=== PATIENT | female | born 1945 | race Caucasian/White ===

== ENCOUNTER 2019-02-07 19:56 | Emergency (ER) | payer MEDICARE, SELFPAY ==
[2019-02-07 20:03] VITALS: BP 210/87; BP 213/92; PULSE 89; RESP 18; TEMP 36.4; O2SAT 99; BMI 24.3
--- NOTE | 2019-02-07 20:11 | ED.NEUROSD ---
HPI - Neuro Symptoms/Deficit General Chief Complaint: Hypertension Stated Complaint: left arm and face numbness/tingling Time Seen by Provider: 02/07/19 20:00 Source: patient and family Mode of arrival: ambulatory Limitations: no limitations History of Present Illness HPI Narrative: 73-year-old female nonsmoker with history of hypertension and vaginal prolapse presents to the emergency department with her in the chief complaint of left-sided facial numbness and tingling as well as left arm numbness and tingling that started essentially at rest a few hours prior to arrival. She denies other focal neurologic findings such as blurred vision, trouble with speech, extremity weakness or trouble ambulating. She denies any head injuries or headache. She has had no fever or chills. Onset (ago): hour(s) Timing confirmed by: spouse Location: left face and left arm History of same: No Severity: mild Quality: tingling Relieving factors: none Exacerbating factors: none Context: gradual onset On Anticoagulants: No Associated symptoms: denies other symptoms Treatments Prior to Arrival: none Related Data Home Medications Medication Instructions Recorded Confirmed MULTIVITAMIN (Multivitamin 1 tab PO Q DAY #0 08/20/10 -) [FLAX SEED OIL] 1 tab PO Q DAY #0 08/20/10 aspirin 325 mg PO QDAYP #0 02/01/13 Previous Rx's Medication Instructions Recorded ondansetron [Zofran ODT] 4 mg SUBLINGUAL Q6HP PRN #4 odt 02/08/17 lisinopril 20 mg PO DAILY #14 tab 02/07/19 Allergies Allergy/AdvReac Type Severity Reaction Status Date / Time ibuprofen [IBUPROFEN] Allergy Intermediate NOSE GETS Verified 02/07/19 20:16 STUFFY- CONGESTION shellfish derived Allergy Unknown PT GETS Verified 02/07/19 20:16 [SHELLFISH DERIVED] ITCHY Review of Systems Constitutional Denies chills, Denies fever(s), Denies lethargy and Denies weakness Eyes Denies change in vision, Denies eye discharge, Denies irritation and Denies loss of vision ENT Ears, Nose, Mouth, and Throat: Denies change in voice, Denies neck pain and Denies sore throat Cardiovascular Denies chest pain, Denies irregular heart rhythm, Denies lightheadedness, Denies palpitations, Denies dyspnea, Denies dyspnea on exertion and Denies orthopnea Respiratory Denies cough, Denies dyspnea, Denies dyspnea on exertion and Denies wheezing Gastrointestinal Gastrointestinal: Denies abdominal pain, Denies change in bowel habits, Denies diarrhea, Denies nausea and Denies vomiting Genitourinary Denies hematuria, Denies flank pain, Denies urinary incontinence and Denies urinary urgency Musculoskeletal Denies neck pain Integumentary/Breasts Denies pruritus, Denies erythema, Denies rash and Denies wounds Neurologic Denies confusion, Denies loss of vision, Reports paresthesias and Denies weakness Psychiatric Denies anxiety, Denies confusion, Denies depression, Denies homicidal ideation and Denies suicidal ideation Endocrine Denies palpitations Hematologic/Lymphatic Denies easy bruising Allergic/Immunologic Denies wheezing PFSH Social History Smoking Status: Never smoker Social History Smoking Status: Never smoker Exam Narrative Exam Narrative: GENERAL: [73] year old patient appears stated age. Well-nourished, well-developed patient, in mild distress. Anxious HEAD: Atraumatic. Normocephalic. EYES: Pupils equal round and reactive. Extraocular motions intact. No scleral icterus. No injection or drainage. ENT: Nose without bleeding, purulent drainage. Throat without erythema, tonsillar hypertrophy or exudate. Airway patent. NECK: Trachea midline. Non tender CARDIOVASCULAR: Regular rate and rhythm without murmurs, gallops, or rubs. RESPIRATORY: Clear to auscultation. Breath sounds equal bilaterally. No wheezes, rales, or rhonchi. GASTROINTESTINAL: Abdomen soft, non-tender, nondistended. EXTREMITIES: No edema or joint tenderness. BACK: Nontender without deformity or crepitance. No flank tenderness. NEURO: AOx3. SKIN: No rash or erythema of visible areas Initial Vital Signs Initial Vital Signs: Vital Signs Temperature 97.6 F 02/07/19 20:03 Pulse Rate 89 02/07/19 20:03 Respiratory Rate 18 02/07/19 20:03 Blood Pressure 213/92 H 02/07/19 20:03 Pulse Oximetry 99 02/07/19 20:03 Scores NIH Stroke Scale Level of Conciousness: Alert, keenly responsive Ask month/age: Answers both questions correctly. Open/close eyes, close hand: Performs both tasks correctly Best gaze horizontal: Normal Visual wheeler: No visual loss Facial palsy: Normal symetrical movement Left arm drift: No drift for full 10 sec Right arm drift: No drift for full 10 sec Left leg drift: No drift for full 10 sec Right leg drift: No drift for full 10 sec Limb ataxia: Absent Sensory on face/arms/legs: Normal, no sensory loss Best language: No aphasia, normal Dysarthria: Normal Extinction or inattention: No abnormality Total NIH Stroke scale score: 0 Course Orders Ordered: Discontinued Medications Sodium Chloride (Normal Saline 0.9%) 1,000 mls @ 150 mls/hr IV CONT SARAH Last Infusion: 02/07/19 22:27 Dose: 0 mls/hr Admin: 02/07/19 21:05 Dose: 150 mls/hr Lisinopril (Zestril) 20 mg PO NOW ONE Stop: 02/07/19 22:09 Last Admin: 02/07/19 22:20 Dose: 20 mg Reevaluation(s) Reevaluation #1: Patient had marked improvement but still some presence of her numbness and tingling on arrival. Initially her blood pressure was over 200 and by the time in NIH stroke scale was performed her blood pressure dropped into the 150s and 60s and her symptoms had completely resolved. Consultations Consultation #1: Discussion with on-call provider and we sure the opinion that provided patient is initiated on hypertensives, and given strong return precautions she is appropriate for discharge as this seems most likely to be a consequence of hypertension as opposed to stroke. MDM - Neuro Symptoms/Deficit Lab Data Result diagrams: 02/07/19 20:21 02/07/19 20:21 Lab Results 02/07/19 02/07/19 02/07/19 Range/Units 20:21 20:21 20:21 WBC 7.9 (4.5-11.0) X10^3/uL RBC 5.13 (4.0-5.2) X10^6/uL Hgb 14.6 (12.0-16.0) g/dL Hct 43.3 (36-46) % MCV 84.5 (80-100) fL MCH 28.5 (26-34) PG MCHC 33.8 (30-36) % RDW 13.0 (11.6-14.8) % Plt Count 274 (150-400) X10^3/uL Neut % (Auto) 55.1 (50-75) % Lymph % (Auto) 30.5 (25-40) % [place] % (Auto) 9.8 (3-14) % Eos % (Auto) 3.8 (2-4) % Baso % (Auto) 0.8 (0-2) % Neut # (Auto) 4300 (4454-5487) /uL Lymph # (Auto) 2400 (7232-3209) /uL [place] # (Auto) 800 (0-900) /uL Eos # (Auto) 300 (0-450) /uL Baso # (Auto) 100 (0-100) /uL PT 10.9 (10.1-12.7) SECONDS INR 0.9 (0.9-1.3) APTT 32 (26.4-36.2) SECONDS Sodium 131 L (137-145) mmol/L Potassium 3.9 (3.4-5.1) mmol/L Chloride 94 L (98-107) mmol/L Carbon Dioxide 27 (22-32) mmol/L BUN 14 (7-17) mg/dL Creatinine 0.80 (0.52-1.04) mg/dL Estimated GFR > 60.0 (>60) mL/min BUN/Creatinine Ratio 17.5 (6-22) Glucose 125 H (80-110) mg/dL Calcium 9.5 (8.4-10.2) mg/dL Troponin I < 0.012 (0.01-0.034) ng/mL Urine Dip Bedside Urine Glucose Negative Bedside Urine Bilirubin - Negative Bedside Urine Ketone - Negative Urine Specific [place] 1.010 Bedside Urine Occult Blood - Negative Bedside Urine pH 7.5 Bedside Urine Protein - Negative Bedside Urine Urobilinogen - Negative Bedside Urine Nitrite - Negative Bedside Urine Leukocytes - Negative Esterase Imaging Data CT scan - head: Radiologist's impression: [address] [address] [address] Scan Report Signed Patient: Roseline Ly RMR#: [id number] : 4Acct:[id number] Age/Sex: 73 / FDate of Service: 02/07/19 Loc: ED Accession Number: [id number] Procedure: CT head/brain wo con Ordering Provider: [place],Jose D.O. PROCEDURE: CT HEAD/BRAIN WO CON INDICATIONS: facial, arm numbness TECHNIQUE: Noncontrast 4.5 mm thick angled axial sections acquired from the foramen magnum to the vertex, with coronal and sagittal reformats. For radiation dose reduction, the following was used: automated exposure control, adjustment of mA and/or kV according to patient size. COMPARISON: None. FINDINGS: Image quality: Excellent. CSF spaces: Basal cisterns are patent. No extra-axial fluid collections. The ventricles are symmetric in size and shape. Brain: No intracranial bleeds or masses. There is cerebral volume loss for age, with resultant ventricular and sulcal prominence. There are periventricular and deep white matter chronic small vessel ischemic changes. There is intracranial internal carotid artery atherosclerosis. Skull and face: Calvarium and visualized facial bones appear intact, without suspicious lesions. Sinuses: Visualized sinuses and mastoids are clear. IMPRESSION: No contraindication to TPA found. Reportedly the patient is a potential candidate for TPA administration. Excellent appearance of the brain parenchyma for age. These findings were immediately called to the emergency room at 2100 in the evening and discussed personally with Dr. Olivas, the emergency room physician caring for the patient. Dictated by: Colton Gillette M.D. on 02/07/2019 at 21:01 Approved by: Colton Gillette M.D. on 02/07/2019 at 21:07 [facility] Narrative Medical decision making narrative: Multiple etiologies for patient's symptoms considered including: [Stroke versus TIA versus hypertensive episode] Patient's symptoms improved or duration of stay with above-stated therapies. Findings and discharge diagnosis discussed with patient/family followed by verbalization of understanding Return precautions discussed with patient/family whom verbalize understanding. Discharge Plan Departure Patient Disposition: Home Clinical Impression: Hypertension Qualifiers: Hypertension type: unspecified Qualified Code(s): I10 - Essential (primary) hypertension Discharge Date/Time: 02/07/19 22:32 Interventions: ED Discharge Assessment Last Done: 02/07/19 22:31 Instructions: DI for High Blood Pressure Activity Restrictions/Additional Instructions: *You have been diagnosed with [high blood pressure] *What to do: *Take medications as directed: Your prescription has been electronically transmitted to the [facility] at your request *Follow up with your primary care provider in 2-3 days, call for an appointment. Let them know you were seen in the Emergency Department and that we ask that you be seen in follow up *Return to ER if you should have any new, worsening or concerning symptoms, such as [ ] Prescriptions: New lisinopril 20 mg tablet 20 mg PO DAILY Qty: 14 RF: 0 No Action MULTIVITAMIN (Multivitamin -) 1 tab PO Q DAY Qty: 0 RF: 0 [FLAX SEED OIL] 1 tab PO Q DAY Qty: 0 RF: 0 aspirin 325 MG tablet,delayed release (DR/EC) 325 mg PO QDAYP Qty: 0 RF: 0 ondansetron [Zofran ODT] 4 MG tablet,disintegrating 4 mg Sublingual Q6HP PRNQty: 4 RF: 1 Referrals: Haleigh Mir MD [Primary Care Provider] -
--- NOTE | 2019-02-07 20:21 | DI.CT.S_ITS ---
PROCEDURE: CT HEAD/BRAIN WO CON INDICATIONS: facial, arm numbness TECHNIQUE: Noncontrast 4.5 mm thick angled axial sections acquired from the foramen magnum to the vertex, with coronal and sagittal reformats. For radiation dose reduction, the following was used: automated exposure control, adjustment of mA and/or kV according to patient size. COMPARISON: None. FINDINGS: Image quality: Excellent. CSF spaces: Basal cisterns are patent. No extra-axial fluid collections. The ventricles are symmetric in size and shape. Brain: No intracranial bleeds or masses. There is cerebral volume loss for age, with resultant ventricular and sulcal prominence. There are periventricular and deep white matter chronic small vessel ischemic changes. There is intracranial internal carotid artery atherosclerosis. Skull and face: Calvarium and visualized facial bones appear intact, without suspicious lesions. Sinuses: Visualized sinuses and mastoids are clear. IMPRESSION: No contraindication to TPA found. Reportedly the patient is a potential candidate for TPA administration. Excellent appearance of the brain parenchyma for age. These findings were immediately called to the emergency room at 2100 in the evening and discussed personally with Dr. Olivas, the emergency room physician caring for the patient. Dictated by: Colton Gillette M.D. on 02/07/2019 at 21:01 Approved by: Colton Gillette M.D. on 02/07/2019 at 21:07
[2019-02-07 20:30] VITALS: BP 165/72; PULSE 70; RESP 12; O2SAT 97
[2019-02-07 20:32] LABS: Add Manual Diff / Slide Review NO; Basophils Absolute Auto 100 /uL (0-100); Basophils Percent Auto 0.8 % (0-2); Eosinophils Absolute Auto 300 /uL (0-450); Eosinophils Percent Auto 3.8 % (2-4); Hematocrit 43.3 % (36-46); Hemoglobin 14.6 g/dL (12.0-16.0); Lymphocytes Absolute Auto 2400 /uL (1100-4500); Lymphocytes Percent Auto 30.5 % (25-40); Mean Corpuscular HGB Conc 33.8 % (30-36); Mean Corpuscular Hemoglobin 28.5 PG (26-34); Mean Corpuscular Volume 84.5 fL (80-100); Monocytes Absolute Auto 800 /uL (0-900); Monocytes Percent Auto 9.8 % (3-14); Neutrophils Absolute Auto 4300 /uL (1500-7000); Neutrophils Percent Auto 55.1 % (50-75); Platelet Count 274 X10^3/uL (150-400); Red Blood Cell Count 5.13 X10^6/uL (4.0-5.2); White Blood Cell Count 7.9 X10^3/uL (4.5-11.0)
[2019-02-07 20:48] LABS: INR 0.9 (0.9-1.3); Prothrombin Time 10.9 SECONDS (10.1-12.7)
[2019-02-07 20:50] LABS: PTT Partial Thromboplastin Tim 32 SECONDS (26.4-36.2)
[2019-02-07 20:52] LABS: BUN Creatinine Ratio 17.5 (6-22); Blood Urea Nitrogen 14 mg/dL (7-17); Calcium 9.5 mg/dL (8.4-10.2); Carbon Dioxide 27 mmol/L (22-32); Chloride 94 mmol/L (98-107); Estimated Glomerular Filt Rate > 60.0 mL/min (>60); Glucose 125 mg/dL (80-110); HEMOLYSIS 16 (0-50); Potassium 3.9 mmol/L (3.4-5.1); Sodium 131 mmol/L (137-145)
[2019-02-07 21:04] LABS: Troponin I < 0.012 ng/mL (0.01-0.034)
[2019-02-07] MEDS: SODIUM CHLORIDE 0.9% 1,000 ML 150 ML IV (21:05)
[2019-02-07 21:24] VITALS: BP 175/83; PULSE 67; RESP 11; O2SAT 96
[2019-02-07 22:20] VITALS: BP 173/86; PULSE 81; RESP 15; O2SAT 97
[2019-02-07] MEDS: LISINOPRIL 20 MG TABLET PO (22:20)
--- NOTE | 2019-02-08 07:03 | ED_ITS ---
HPI - Neuro Symptoms/Deficit General Chief Complaint: Hypertension Stated Complaint: left arm and face numbness/tingling Time Seen by Provider: 02/07/19 20:00 Source: patient and family Mode of arrival: ambulatory Limitations: no limitations History of Present Illness HPI Narrative: 73-year-old female nonsmoker with history of hypertension and vaginal prolapse presents to the emergency department with her in the chief complaint of left-sided facial numbness and tingling as well as left arm numbness and tingling that started essentially at rest a few hours prior to arrival. She denies other focal neurologic findings such as blurred vision, trouble with speech, extremity weakness or trouble ambulating. She denies any head injuries or headache. She has had no fever or chills. Onset (ago): hour(s) Timing confirmed by: spouse Location: left face and left arm History of same: No Severity: mild Quality: tingling Relieving factors: none Exacerbating factors: none Context: gradual onset On Anticoagulants: No Associated symptoms: denies other symptoms Treatments Prior to Arrival: none Related Data Home Medications Medication Instructions Recorded Confirmed MULTIVITAMIN (Multivitamin 1 tab PO Q DAY #0 08/20/10 -) [FLAX SEED OIL] 1 tab PO Q DAY #0 08/20/10 aspirin 325 mg PO QDAYP #0 02/01/13 Previous Rx's Medication Instructions Recorded ondansetron [Zofran ODT] 4 mg SUBLINGUAL Q6HP PRN #4 odt 02/08/17 lisinopril 20 mg PO DAILY #14 tab 02/07/19 Allergies Allergy/AdvReac Type Severity Reaction Status Date / Time ibuprofen [IBUPROFEN] Allergy Intermediate NOSE GETS Verified 02/07/19 20:16 STUFFY- CONGESTION shellfish derived Allergy Unknown PT GETS Verified 02/07/19 20:16 [SHELLFISH DERIVED] ITCHY Review of Systems Constitutional Denies chills, Denies fever(s), Denies lethargy and Denies weakness Eyes Denies change in vision, Denies eye discharge, Denies irritation and Denies loss of vision ENT Ears, Nose, Mouth, and Throat: Denies change in voice, Denies neck pain and Denies sore throat Cardiovascular Denies chest pain, Denies irregular heart rhythm, Denies lightheadedness, Denies palpitations, Denies dyspnea, Denies dyspnea on exertion and Denies orthopnea Respiratory Denies cough, Denies dyspnea, Denies dyspnea on exertion and Denies wheezing Gastrointestinal Gastrointestinal: Denies abdominal pain, Denies change in bowel habits, Denies diarrhea, Denies nausea and Denies vomiting Genitourinary Denies hematuria, Denies flank pain, Denies urinary incontinence and Denies urinary urgency Musculoskeletal Denies neck pain Integumentary/Breasts Denies pruritus, Denies erythema, Denies rash and Denies wounds Neurologic Denies confusion, Denies loss of vision, Reports paresthesias and Denies weakness Psychiatric Denies anxiety, Denies confusion, Denies depression, Denies homicidal ideation and Denies suicidal ideation Endocrine Denies palpitations Hematologic/Lymphatic Denies easy bruising Allergic/Immunologic Denies wheezing PFSH Social History Smoking Status: Never smoker Social History Smoking Status: Never smoker Exam Narrative Exam Narrative: GENERAL: [73] year old patient appears stated age. Well- nourished, well-developed patient, in mild distress. Anxious HEAD: Atraumatic. Normocephalic. EYES: Pupils equal round and reactive. Extraocular motions intact. No scleral icterus. No injection or drainage. ENT: Nose without bleeding, purulent drainage. Throat without erythema, tonsillar hypertrophy or exudate. Airway patent. NECK: Trachea midline. Non tender CARDIOVASCULAR: Regular rate and rhythm without murmurs, gallops, or rubs. RESPIRATORY: Clear to auscultation. Breath sounds equal bilaterally. No wheezes, rales, or rhonchi. GASTROINTESTINAL: Abdomen soft, non-tender, nondistended. EXTREMITIES: No edema or joint tenderness. BACK: Nontender without deformity or crepitance. No flank tenderness. NEURO: AOx3. SKIN: No rash or erythema of visible areas Initial Vital Signs Initial Vital Signs: Vital Signs Temperature 97.6 F 02/07/19 20:03 Pulse Rate 89 02/07/19 20:03 Respiratory Rate 18 02/07/19 20:03 Blood Pressure 213/92 H 02/07/19 20:03 Pulse Oximetry 99 02/07/19 20:03 Scores NIH Stroke Scale Level of Conciousness: Alert, keenly responsive Ask month/age: Answers both questions correctly. Open/close eyes, close hand: Performs both tasks correctly Best gaze horizontal: Normal Visual wheeler: No visual loss Facial palsy: Normal symetrical movement Left arm drift: No drift for full 10 sec Right arm drift: No drift for full 10 sec Left leg drift: No drift for full 10 sec Right leg drift: No drift for full 10 sec Limb ataxia: Absent Sensory on face/arms/legs: Normal, no sensory loss Best language: No aphasia, normal Dysarthria: Normal Extinction or inattention: No abnormality Total NIH Stroke scale score: 0 Course Orders Ordered: Discontinued Medications Sodium Chloride (Normal Saline 0.9%) 1,000 mls @ 150 mls/hr IV CONT SARAH Last Infusion: 02/07/19 22:27 Dose: 0 mls/hr Admin: 02/07/19 21:05 Dose: 150 mls/hr Lisinopril (Zestril) 20 mg PO NOW ONE Stop: 02/07/19 22:09 Last Admin: 02/07/19 22:20 Dose: 20 mg Reevaluation(s) Reevaluation #1: Patient had marked improvement but still some presence of her numbness and tingling on arrival. Initially her blood pressure was over 200 and by the time in NIH stroke scale was performed her blood pressure dropped into the 150s and 60s and her symptoms had completely resolved. Consultations Consultation #1: Discussion with on-call provider and we sure the opinion that provided patient is initiated on hypertensives, and given strong return precautions she is appropriate for discharge as this seems most likely to be a consequence of hypertension as opposed to stroke. MDM - Neuro Symptoms/Deficit Lab Data Result diagrams: 02/07/19 20:21 02/07/19 20:21 Lab Results 02/07/19 02/07/19 02/07/19 Range/Units 20:21 20:21 20:21 WBC 7.9 (4.5-11.0) X10^3/uL RBC 5.13 (4.0-5.2) X10^6/uL Hgb 14.6 (12.0-16.0) g/dL Hct 43.3 (36-46) % MCV 84.5 (80-100) fL MCH 28.5 (26-34) PG MCHC 33.8 (30-36) % RDW 13.0 (11.6-14.8) % Plt Count 274 (150-400) X10^3/uL Neut % (Auto) 55.1 (50-75) % Lymph % (Auto) 30.5 (25-40) % [place] % (Auto) 9.8 (3-14) % Eos % (Auto) 3.8 (2-4) % Baso % (Auto) 0.8 (0-2) % Neut # (Auto) 4300 (4472-6203) /uL Lymph # (Auto) 2400 (0464-9880) /uL [place] # (Auto) 800 (0-900) /uL Eos # (Auto) 300 (0-450) /uL Baso # (Auto) 100 (0-100) /uL PT 10.9 (10.1-12.7) SECONDS INR 0.9 (0.9-1.3) APTT 32 (26.4-36.2) SECONDS Sodium 131 L (137-145) mmol/L Potassium 3.9 (3.4-5.1) mmol/L Chloride 94 L (98-107) mmol/L Carbon Dioxide 27 (22-32) mmol/L BUN 14 (7-17) mg/dL Creatinine 0.80 (0.52-1.04) mg/dL Estimated GFR > 60.0 (>60) mL/min BUN/Creatinine Ratio 17.5 (6-22) Glucose 125 H (80-110) mg/dL Calcium 9.5 (8.4-10.2) mg/dL Troponin I < 0.012 (0.01-0.034) ng/mL Urine Dip Bedside Urine Glucose Negative Bedside Urine Bilirubin - Negative Bedside Urine Ketone - Negative Urine Specific [place] 1.010 Bedside Urine Occult Blood - Negative Bedside Urine pH 7.5 Bedside Urine Protein - Negative Bedside Urine Urobilinogen - Negative Bedside Urine Nitrite - Negative Bedside Urine Leukocytes - Negative Esterase Imaging Data CT scan - head: Radiologist's impression: [address] [address] [address] Scan Report Signed Patient: Roseline Ly RMR#: [id number] : 4Acct:[id number] Age/Sex: 73 / FDate of Service: 02/07/19 Loc: ED Accession Number: [id number] Procedure: CT head/brain wo con Ordering Provider: [place],Jose D.O. PROCEDURE: CT HEAD/BRAIN WO CON INDICATIONS: facial, arm numbness TECHNIQUE: Noncontrast 4.5 mm thick angled axial sections acquired from the foramen magnum to the vertex, with coronal and sagittal reformats. For radiation dose reduction, the following was used: automated exposure control, adjustment of mA and/or kV according to patient size. COMPARISON: None. FINDINGS: Image quality: Excellent. CSF spaces: Basal cisterns are patent. No extra-axial fluid collections. The ventricles are symmetric in size and shape. Brain: No intracranial bleeds or masses. There is cerebral volume loss for age, with resultant ventricular and sulcal prominence. There are periventricular and deep white matter chronic small vessel ischemic changes. There is intracranial internal carotid artery atherosclerosis. Skull and face: Calvarium and visualized facial bones appear intact, without suspicious lesions. Sinuses: Visualized sinuses and mastoids are clear. IMPRESSION: No contraindication to TPA found. Reportedly the patient is a potential candidate for TPA administration. Excellent appearance of the brain parenchyma for age. These findings were immediately called to the emergency room at 2100 in the evening and discussed personally with Dr. Olivas, the emergency room physician caring for the patient. Dictated by: Colton Gillette M.D. on 02/07/2019 at 21:01 Approved by: Colton Gillette M.D. on 02/07/2019 at 21:07 [facility] Narrative Medical decision making narrative: Multiple etiologies for patient's symptoms considered including: [Stroke versus TIA versus hypertensive episode] Patient's symptoms improved or duration of stay with above-stated therapies. Findings and discharge diagnosis discussed with patient/family followed by verbalization of understanding Return precautions discussed with patient/family whom verbalize understanding. Discharge Plan Departure Patient Disposition: Home Clinical Impression: Hypertension Qualifiers: Hypertension type: unspecified Qualified Code(s): I10 - Essential (primary) hypertension Discharge Date/Time: 02/07/19 22:32 Interventions: ED Discharge Assessment Last Done: 02/07/19 22:31 Instructions: DI for High Blood Pressure Activity Restrictions/Additional Instructions: *You have been diagnosed with [high blood pressure] *What to do: *Take medications as directed: Your prescription has been electronically transmitted to the [email or web address] at your request *Follow up with your primary care provider in 2-3 days, call for an ap pointment. Let them know you were seen in the Emergency Department and that we ask that you be seen in follow up *Return to ER if you should have any new, worsening or concerning symptoms, such as [ ] Prescriptions: New lisinopril 20 mg tablet 20 mg PO DAILY Qty: 14 RF: 0 No Action MULTIVITAMIN (Multivitamin -) 1 tab PO Q DAY Qty: 0 RF: 0 [FLAX SEED OIL] 1 tab PO Q DAY Qty: 0 RF: 0 aspirin 325 MG tablet,delayed release (DR/EC) 325 mg PO QDAYP Qty: 0 RF: 0 ondansetron [Zofran ODT] 4 MG tablet,disintegrating 4 mg Sublingual Q6HP PRNQty: 4 RF: 1 Referrals: Haleigh Mir MD [Primary Care Provider] -
== END 2019-02-07 22:32 | disposition home or self-care (01) ==
PROVIDERS: Emergency Provider Emergency Medicine; Family Provider Specialist; PCP Family Medicine
DX: I10 Essential (primary) hypertension (principal)
CPT/HCPCS: 36591; 70450; 80048; 81003; 84484; 85025; 85610; 85730; 93005; 96360; 99283; 99285

== ENCOUNTER → 2019-02-19 12:43 | Outpatient (CLI) | payer MEDICARE, SELFPAY ==
--- NOTE | 2019-02-19 | DI.MRI.S_ITS ---
PROCEDURE: MR STROKE Pre- and post-contrast brain MRI, non-contrast brain MR angiogram, pre- and postcontrast neck MR angiogram INDICATIONS: Transient cerebral ischemic attack, unspecified TECHNIQUE: Brain: Noncontrast axial T1 spin echo, axial T2 fast spin echo, sagittal and axial FLAIR, coronal T2 fast spin echo, axial gradient echo, axial diffusion and ADC through the brain. After the administration of contrast, axial 3D VIBE of the cranial vasculature and brain. Brain MRA: Non-contrast 3-D time of flight MR angiogram, with multiple zjjhurd-qrfdauoeg-xmeclfvylr (MIP) reformats performed. Neck MRA: Axial and sagittal TruFISP through the neck. Coronal dynamic MR angiogram during administration of contrast in the arterial and venous phases, with 3-dimenstional lgdrqtb-iqtyykkwi-uploagmchf (MIP) reformats constructed from subtraction images. COMPARISON: [facility], MR, STROKE PROTOCOL, 10/19/2015, 7:21. FINDINGS: Image quality: Excellent. BRAIN: CSF spaces: Ventricles are normal in size and shape. Basal cisterns are patent. No extra-axial fluid collections. Brain: No intracranial bleeds or mass effects. Shaikh-white matter interface is normal. Diffusion weighted images show no acute ischemic insults. Brainstem appears normal. Normal intravascular flow voids are present. No abnormal intracranial enhancement. Skull and face: Calvarial marrow signal is normal. Orbits appear normal. Sinuses: Sinuses and mastoids are clear. BRAIN MR ANGIOGRAM: Anterior circulation: Intracranial internal carotid arteries are normal in size and enhancement. The flow within the paired anterior cerebral arteries is normal and symmetric. The flow within the middle cerebral arteries is normal and symmetric. The anterior communicating artery is seen. No stenoses, occlusions, or aneurysms. Posterior circulation: The visualized portions of the vertebral arteries demonstrate normal caliber, and join to form a normal appearing basilar artery. The flow within the posterior cerebral arteries is normal and symmetric. No stenoses, occlusions, or aneurysms. NECK MR ANGIOGRAM: Carotids: Great vessels demonstrate a conventional anatomy as they arise from the aortic arch. The origins of the common carotid arteries appear patent. The calibers and courses of both common carotid arteries are normal. The bifurcation regions appear normal bilaterally. The internal carotid arteries demonstrate normal course and caliber. Posterior circulation: The origins of the vertebral arteries appear patent. More superior portions of both vertebral arteries demonstrate normal course and caliber, and join to form a normal appearing basilar artery. Miscellaneous: Subclavian arteries appear patent. Pre-contrast images through the neck show no soft tissue abnormalities. IMPRESSION: BRAIN MRI: Minimal microvascular atherosclerotic change in the deep white matter H. hemisphere, as was previously the case in September of 2015. A source of TIA is not identified. BRAIN MR ANGIOGRAM: Normal intracranial MR angiogram. NECK MR ANGIOGRAM: Normal cervical MR angiogram. Dictated by: Colton Gillette M.D. on 02/19/2019 at 15:13 Approved by: Colton Gillette M.D. on 02/19/2019 at 15:18
== END ==
PROVIDERS: PCP Family Medicine; Visit Provider Family Medicine
DX: G45.9 Transient cerebral ischemic attack, unspecified (principal)
CPT/HCPCS: 70548; 70553; A9579

== ENCOUNTER → 2019-05-06 09:27 | Outpatient (CLI) | payer MEDICARE, SELFPAY ==
--- NOTE | 2019-05-06 | DI.MG.S_ITS ---
BILATERAL DIGITAL SCREENING MAMMOGRAM 3D/2D WITH CAD: 05/06/2019 CLINICAL: Routine screening. Comparison is made to exams dated: 06/17/2017 mammogram, 06/07/2016 mammogram, and 06/05/2015 mammogram - [facility]. There are scattered fibroglandular elements in both breasts. Current study was also evaluated with a Computer Aided Detection (CAD) system. No significant masses, calcifications, or other findings are seen in either breast. There has been no significant interval change. IMPRESSION: NEGATIVE There is no mammographic evidence of malignancy. A 1 year screening mammogram is recommended. This exam was interpreted at Station ID: [id number]. NOTE: For mammograms, a report in lay terms will be sent to the patient. Approximately 15% of breast malignancies will not be visualized mammographically. In the management of a palpable breast mass, a negative mammogram must not discourage biopsy of a clinically suspicious lesion. Electronically Signed By: Jeison lopez/bipin:05/06/2019 12:53:32 letter sent: Normal Exam ACR BI-RADS Category 1: Negative 3341F
== END ==
PROVIDERS: PCP Family Medicine; Visit Provider Family Medicine
DX: Z12.31 Encounter for screening mammogram for malignant neoplasm of breast (principal)
CPT/HCPCS: 77063; 77067

== ENCOUNTER → 2020-06-21 09:12 | Outpatient (CLI) | payer MEDICARE, SELFPAY ==
--- NOTE | 2020-06-21 | DI.ECHO.S_ITS ---
[facility] +---------+ [facility] +---------+ : : [address] : : : : [id number] : : : : Phone: [phone]+ Echocardiogram Report + + :Name: ZOFIA CHAVEZ Study Date: 06/21/2020 Height: 64 in : :[facility] Weight: 148 lb : : Gender: Female BSA: 1.7 m2 : :: 1945 Age: 75 yrs BP: 146/86 mmHg: :Reason For Study: ATYPICAL CHEST PAIN, PALPITATIONS : :Ordering Physician: SUPRIYA, : :BRIAN Performed By: Mena Brown : :Referring: BRIAN EPPS : + + Interpretation Summary The left ventricle is normal in size and wall thickness. The ejection fraction is estimated to be 60-65%. No significant change in LV ejection fraction from the previous study. The right ventricle is normal in size and function. There is mild mitral regurgitation. There is mild aortic regurgitation. Compared to the prior echo study, there has been no change in the severity of aortic regurgitation. There is mild tricuspid regurgitation. The right ventricular systolic pressure is estimated to be at least 18 mmHg based on an estimated right atrial pressure of 3 mm Hg. Procedure: A two-dimensional transthoracic echocardiogram with color flow and Doppler was performed. The study quality was technically adequate. Comparison is made with the echocardiogram of 06/17/2017. The patient was in sinus rhythm with heart rates between 63-72 bpm during the exam. Left Ventricle: The left ventricle is normal in size and wall thickness. There is no thrombus. A false chord is noted (normal variant). The ejection fraction is estimated to be 60-65%. There are no focal wall motion abnormalities. MV E/A: 1.2 Med Peak E' Anant: 5.4 cm/sec E/E' med: 14.7. Right Ventricle: The right ventricle is normal in size and function. Atria: The left atrial size is normal. Both atria have remained unchanged in size since the prior echo exam. Right atrial size is normal. There is no Doppler evidence for an interatrial shunt. Mitral Valve: There is mild mitral annular calcification. There is mild mitral regurgitation. Aortic Valve: The aortic valve is trileaflet. The aortic valve opens well. There is no aortic valve stenosis. There is mild aortic regurgitation. Compared to the prior echo study, there has been no change in the severity of aortic regurgitation. Tricuspid Valve: The tricuspid valve is normal in structure and function. The right ventricular systolic pressure is estimated to be at least 18 mmHg based on an estimated right atrial pressure of 3 mm Hg. There is mild tricuspid regurgitation. Pulmonic Valve: The pulmonic valve is not well seen, but is grossly normal. There is no pulmonic valvular regurgitation. Great Vessels: The aortic root is normal size. The dimensions of the ascending aorta are normal. The IVC is of normal diameter and collapses greater than 50% with a sniff. This suggests a low right atrial pressure of 3 mm Hg. Pericardium/ Pleura There is no pericardial effusion. There is no pleural effusion. MMode/2D Measurements & Calculations LVIDd: 4.3 cm LVOT diam: 2.2 cm LVIDs: 3.2 cm Ao root diam: 2.9 cm FS: 26.1 % asc Aorta Diam: 3.1 cm EPSS: 0.58 cm Ao Arch Diam (Prox Trans): 2.4 cm IVSd: 0.82 cm LVPWd: 0.81 cm LV gatica. diameter/BSA (cm/m^2): 2.5 LV sys. diameter/BSA (cm/m^2): 1.9 LA A2 area: 17.8 cm2 RA long axis: 4.8 cm LA A4 area: 17.9 cm2 RA area: 17.5 cm2 LA length (vol): 5.0 cm RA vol: 54.4 ml LA vol: 54.1 ml RA : 31.6 ml/m2 LA vol index: 31.4 ml/m2 IVC diam: 1.2 cm RVD1 (basal): 2.8 cm TAPSE: 2.4 cm Doppler Measurements & Calculations Ao V2 max: 99.8 cm/sec LVOT Max Anant: 98.4 cm/sec Ao V2 mean: 70.8 cm/sec LV V1 max P.9 mmHg Ao max P.0 mmHg LV V1 VTI: 22.1 cm Ao mean P.2 mmHg ELVI(I,D): 3.0 cm2 Ao V2 VTI: 26.4 cm ELVI(V,D): 3.6 cm2 sev ratio: 0.84 ELVI indexed to BSA (cm^2/m^2): 1.8 AI P1/2t: 703.5 msec AI dec slope: 181.8 cm/sec2 MV E max anant: 79.8 cm/sec TR max anant: 190.3 cm/sec MV A max anant: 65.4 cm/sec TR max P.5 mmHg MV E/A: 1.2 PA V2 max: 61.4 cm/sec Med Peak E' Anant: 5.4 cm/sec PA V2 mean: 41.6 cm/sec E/E' med: 14.7 PA mean P.80 mmHg Lat Peak E' Anant: 8.6 cm/sec PA pr(Accel): 1.9 mmHg E/E' lat: 9.3 E/e' average: 12.0 MV dec time: 0.14 sec SV(LVOT): 80.5 ml Reading Physician:05:25 PM
== END ==
PROVIDERS: PCP Family Medicine; Visit Provider Family Medicine
DX: R07.89 Other chest pain (principal); R00.2 Palpitations
CPT/HCPCS: 93306

== ENCOUNTER → 2020-06-22 10:35 | Outpatient (CLI) | payer MEDICARE, SELFPAY ==
--- NOTE | 2020-07-19 09:17 | PM.CARDMON.1 ---
Director Of Graduate Medical Education Report Referral & Results Date Patient Seen: 06/22/20 Requesting provider: Haleigh Mir Indication: Palpitations Duration of monitoring (days): 14 Diary information: there are 2 patient diary entries into patient triggered events Patient triggered events were associated with sinus rhythm only Patient diary events were associated with (within 45 seconds) sinus rhythm and PACs Data: Minimum heart rate identified was 53 beats per minute at 06:17 on 07/06/2020 Maximum sinus rate was 150 beats per minute at 12:37 on 06/25/2020 Maximum overall heart rate was 266 beats per minute at 12:37 on 06/25/2020 during a 4 beat run of SVT Less than 1% of identified beats rather ventricular supraventricular ectopic in origin Patient had 1 run of nonsustained monomorphic ventricular tachycardia lasting 14 beats at a rate of 190 beats per minute 10 runs of SVT occurred with the longest lasting 6 beats at a rate of 102 beats per minute which suggest possible atrial tachycardia rather than true SVT. Episodes of atrial fibrillation also occurred with heart rate 105-188 beats per minute longest lasting 1 minutes 55 seconds Impression: patient associated events appeared to be most likely PACs Patient also with brief runs of SVT as above Patient also with a single run of nonsustained ventricular tachycardia Patient also with a very low burden of atrial fibrillation but atrial fibrillation was identified
== END ==
PROVIDERS: PCP Family Medicine; Referring Provider Family Medicine; Visit Provider Family Medicine
DX: R00.2 Palpitations (principal)
CPT/HCPCS: 0296T; 0298T

== ENCOUNTER → 2020-07-21 13:19 | Outpatient (CLI) | payer MEDICARE, SELFPAY ==
[2020-07-21] MEDS: COVID-19 VACC #1, MRNA(MOD) 100 MCG/0.5 ML VIAL IM (13:31)
== END ==
PROVIDERS: PCP Family Medicine; Visit Provider Internal Medicine
DX: Z23 Encounter for immunization (principal)
CPT/HCPCS: 0011A; 91301

== ENCOUNTER → 2020-08-18 15:36 | Outpatient (CLI) | payer MEDICARE, SELFPAY ==
[2020-08-18] MEDS: COVID-19 VACC #2, MRNA(MOD) 100 MCG/0.5 ML VIAL IM (15:42)
== END ==
PROVIDERS: PCP Family Medicine; Visit Provider Internal Medicine
DX: Z23 Encounter for immunization (principal)
CPT/HCPCS: 0012A; 91301

== ENCOUNTER → 2020-08-30 09:29 | Outpatient (CLI) | payer MEDICARE, SELFPAY ==
[2020-08-30 11:08] LABS: COVID19 -Nasal RAPID Negative (Negative)
== END ==
PROVIDERS: PCP Family Medicine; Visit Provider Physician Assistant
DX: Z20.822 Contact with and (suspected) exposure to COVID-19 (principal); Z01.812 Encounter for preprocedural laboratory examination
CPT/HCPCS: 87635; C9803

== ENCOUNTER → 2020-08-31 10:18 | Outpatient (CLI) | payer MEDICARE, SELFPAY ==
--- NOTE | 2020-08-31 19:44 | DI.NM.S_ITS ---
DATE OF SERVICE: 08/31/2020 PROCEDURE PERFORMED: Exercise treadmill stress and rest myocardial perfusion imaging study with gating to assess ejection fraction and regional wall motion. ORDERING PROVIDER: Dr. David Salinas. INDICATIONS: The patient is a 75-year-old female with recently diagnosed paroxysmal atrial fibrillation and reported nonsustained ventricular tachycardia. EXERCISE TREADMILL TESTING: The patient was able to exercise for a total of 7 minutes 28 seconds on a standard Adelso protocol suggesting excellent exercise capacity with an VANDANA of -43%. She had a normal heart rate response, achieving a maximum heart rate of 149 BPM (103% of her predicted maximum). She had a mild hypertensive blood pressure response with a resting blood pressure of 140/80, increasing to a maximum of 210/100. She had no chest pain or other anginal symptoms. Her resting ECG shows sinus rhythm with normal ST segments. With exercise, there were no significant ST-segment shifts and had occasional PACs with one brief four-beat run of SVT, but no other concerning arrhythmias. At 6 minutes 20 seconds of exercise at a heart rate of 143 BPM, 25.7 millicuries of technetium-99m Myoview was injected and the patient was imaged 15 minutes later using a gated SPECT acquisition protocol. Earlier in the day while at rest, she was injected with 10.2 millicuries of technetium-99m Myoview and imaged 30 minutes later, again using a gated SPECT acquisition protocol. FINDINGS: 1. Raw data: There is fairly good myocardial tracer uptake. Mild breast shadows are noted. Lung/heart ratio was normal at 0.27 with a normal TID ratio of 1.21. 2. Quantitated gated SPECT: Post-stress ejection fraction is estimated at 84% without any focal wall motion abnormality. Resting ejection fraction is estimated at 78% with a resting end-diastolic volume of 69 mL. 3. Myocardial perfusion imaging: Post-stress supine images shows a normal myocardial perfusion pattern without any concerning perfusion defects, supported by normal perfusion imaging in the prone position. The resting images show an identical perfusion pattern without any areas of improvement. IMPRESSION: 1. Normal myocardial perfusion study. 2. No evidence of myocardial ischemia or previous myocardial infarction. 3. Normal left ventricular systolic function without any focal wall motion abnormality. 4. Excellent exercise capacity without any angina or ECG evidence of ischemia. She had occasional PACs and a hypertensive blood pressure response to exercise. 5. Compared to the previous myocardial perfusion study of 02/12/2013, a similar perfusion pattern is seen without any significant changes. Roseline Ly - SUSHMA/lilian/nidia doc#: [id number]/job#: [id number] dd: 08/31/2020 17:01:00 dt: 08/31/2020 19:35:00 DICTATING MD/COPIES TO: Gerardo Payton MD; Juan José Salinas MD COPIES MNE: ANNE;
== END ==
PROVIDERS: PCP Family Medicine; Referring Provider Internal Medicine Cardiovascular Disease; Visit Provider Internal Medicine Cardiovascular Disease
DX: I48.0 Paroxysmal atrial fibrillation (principal); I47.2 Ventricular tachycardia
CPT/HCPCS: 78452; 93017; A9502

== ENCOUNTER → 2021-05-16 10:29 | Outpatient (CLI) | payer MEDICARE, SELFPAY ==
--- NOTE | 2021-05-16 | DI.MG.S_ITS ---
BILATERAL DIGITAL SCREENING MAMMOGRAM 3D/2D WITH CAD: 05/16/2021 CLINICAL: Routine screening. Comparison is made to exams dated: 05/06/2019 mammogram, 06/17/2017 mammogram, and 06/07/2016 mammogram - [facility]. There are scattered fibroglandular elements in both breasts. Current study was also evaluated with a Computer Aided Detection (CAD) system. No significant masses, calcifications, or other findings are seen in either breast. There has been no significant interval change. IMPRESSION: NEGATIVE There is no mammographic evidence of malignancy. A 1 year screening mammogram is recommended. This exam was interpreted at Station ID: [id number]. NOTE: For mammograms, a report in lay terms will be sent to the patient. Approximately 15% of breast malignancies will not be visualized mammographically. In the management of a palpable breast mass, a negative mammogram must not discourage biopsy of a clinically suspicious lesion. Electronically Signed By: Henry Deras M.D., jr/bipin:05/16/2021 12:40:35 letter sent: Normal Exam ACR BI-RADS Category 1: Negative 3341F
== END ==
PROVIDERS: PCP Family Medicine; Referring Provider Family Medicine; Visit Provider Family Medicine
DX: Z12.31 Encounter for screening mammogram for malignant neoplasm of breast (principal)
CPT/HCPCS: 77063; 77067

== ENCOUNTER → 2021-05-23 10:53 | Outpatient (CLI) | payer MEDICARE, SELFPAY ==
--- NOTE | 2021-05-23 | DI.RAD.S_ITS ---
PROCEDURE: XR HIP W PEL IF DONE LT 2V INDICATIONS: Pain in left hip TECHNIQUE: AP pelvis with lateral view(s) of the left hip(s). COMPARISON: None. FINDINGS: Bones: No acute fractures or dislocations. Pelvic ring appears intact. No suspicious bony lesions. Degenerative changes of the bilateral hips. This is more pronounced on the left. Degenerative changes of the lower lumbar spine. Soft tissues: The visualized bowel gas pattern is normal. No suspicious soft tissue calcifications. IMPRESSION: Left hip without acute fracture or dislocation. Degenerative changes of the bilateral hips more pronounced on the left. Dictated by: Jamshid Clement M.D. on 05/23/2021 at 15:56 Approved by: Jamshid Clement M.D. on 05/23/2021 at 15:57
--- NOTE | 2021-05-23 | DI.RAD.S_ITS ---
PROCEDURE: XR LUMBAR SPINE 2-3V INDICATIONS: Pain in left hip TECHNIQUE: 3 views of the lumbar spine were acquired. COMPARISON: None. FINDINGS: Bones: 5 bub-qna-enxgsno vertebrae are present. There is moderate leftward curvature the lumbar spine. Loss of normal lumbar lordosis. Mild grade 1 retrolisthesis of L2 on L3. Multilevel degenerative disc and facet disease. No vertebral body compression fractures. No suspicious bony lesions. Soft tissues: Overlying bowel gas pattern is normal. No suspicious soft tissue calcifications. IMPRESSION: Multilevel degenerative disc and facet disease. No acute fracture. No osseous lesion. If symptoms and/or clinical suspicion for pathology persist, further assessment with repeat, or advanced imaging (e.g., CT, MRI, or bone scan) may be helpful for further assessment. Dictated by: Perlita Ash M.D. on 05/23/2021 at 14:45 Approved by: Perlita Ash M.D. on 05/23/2021 at 15:07
== END ==
PROVIDERS: PCP Family Medicine; Referring Provider Family Medicine; Visit Provider Family Medicine
DX: M51.36 Other intervertebral disc degeneration, lumbar region (principal); M25.552 Pain in left hip
CPT/HCPCS: 72100; 73502

== ENCOUNTER → 2022-06-04 09:45 | Outpatient (CLI) | payer MEDICARE, SELFPAY ==
[2022-06-04 10:38] LABS: Add Manual Diff / Slide Review NO; Basophils Absolute Auto 100 /uL (0-100); Basophils Percent Auto 0.9 % (0-2); Eosinophils Absolute Auto 200 /uL (0-450); Eosinophils Percent Auto 3.9 % (2-4); Hematocrit 40.8 % (36-46); Hemoglobin 13.8 g/dL (12.0-16.0); Lymphocytes Absolute Auto 1100 /uL (1100-4500); Lymphocytes Percent Auto 18.5 % (25-40); Mean Corpuscular HGB Conc 33.9 % (30-36); Mean Corpuscular Hemoglobin 28.6 PG (26-34); Mean Corpuscular Volume 84.2 fL (80-100); Monocytes Absolute Auto 600 /uL (0-900); Monocytes Percent Auto 9.5 % (3-14); Neutrophils Absolute Auto 4000 /uL (1500-7000); Neutrophils Percent Auto 67.2 % (50-75); Platelet Count 280 X10^3/uL (150-400); Red Blood Cell Count 4.84 X10^6/uL (4.0-5.2); Red Cell Distribution Width 13.2 % (11.6-14.8)
[2022-06-04 11:11] LABS: BUN Creatinine Ratio 15.8 (6-22); Blood Urea Nitrogen 12 mg/dL (7-17); Calcium 9.2 mg/dL (8.4-10.2); Carbon Dioxide 27 mmol/L (22-32); Chloride 97 mmol/L (98-107); Cholesterol 211 mg/dL (140-199); Estimated Glomerular Filt Rate > 60 mL/min (>60); Glucose 94 mg/dL (80-110); HDL Cholesterol 86 mg/dL (40-60); HEMOLYSIS < 15 (0-50); LDL Cholesterol Calculated 107 mg/dL (<100); Potassium 4.5 mmol/L (3.4-5.1); Sodium 133 mmol/L (137-145); Triglycerides 92 mg/dL (35-150)
[2022-06-04 11:38] LABS: TSH w/ Reflex to FT4 1.16 uIU/mL (0.47-4.68)
== END ==
PROVIDERS: PCP Family Medicine; Referring Provider Internal Medicine Cardiovascular Disease; Visit Provider Internal Medicine Cardiovascular Disease
DX: I48.0 Paroxysmal atrial fibrillation (principal); Z79.01 Long term (current) use of anticoagulants; Z00.00 Encounter for general adult medical examination without abnormal findings
CPT/HCPCS: 36415; 80048; 80061; 84443; 85025

== ENCOUNTER → 2022-11-27 09:50 | Outpatient (CLI) | payer MEDICARE, SELFPAY ==
--- NOTE | 2022-11-27 | DI.RAD.S_ITS ---
Bone Density Report Name: ZOFIA CHAVEZ Age: 77 Sex: Female Ethnicity: White Date of : 1945 Indication: postmenopausal; screening for osteoporosis; Referring Provider: BRIAN EPPS Study: Bone densitometry was performed. Exam Date: November 27, 2022 Accession number: [id number] Bone Density: Region BMD T-score Z-score Classification AP Spine(L1-L4) 1.192 1.3 3.9 Normal Femoral Neck (Left) 0.773 -0.7 1.6 Normal Total Hip (Left) 0.933 -0.1 1.9 Normal Femoral Neck (Right) 0.761 -0.8 1.5 Normal Total Hip (Right) 0.921 -0.2 1.8 Normal Total Hip Mean 0.927 -0.2 1.9 Normal World Health Organization criteria for BMD impression classify patients as: Normal (T-score at or above -1.0), Osteopenia (T-score between -1.0 and -2.5), or Osteoporosis (T-score at or below -2.5). 10-year Fracture Risk: FRAX not reported because: All T-scores for Spine Total, Hip Total, Femoral Neck at or above -1.0 Previous Exams: -- Region Exam Age BMD T-score BMD Change BMD Change Date g/cm2 vs Baseline vs Previous -- AP Spine (L1-L4) 11/27/2022 77 1.192 1.3 0.046 (4.0%)# 0.046 (4.0%)# 12/31/2016 71 1.147 0.9 Total Hip(Left) 11/27/2022 77 0.933 -0.1 -0.033 (-3.4%)# -0.033 (-3.4%)# 12/31/2016 71 0.966 0.2 Total Hip(Right) 11/27/2022 77 0.921 -0.2 -0.020 (-2.1%)# -0.020 (-2.1%)# 12/31/2016 71 0.941 0.0 -- *Denotes significance at 95% confidence level, LSC for AP Spine = 0.022 g/cm2, LSC for Total Hip = 0.027 g/cm2 # Denotes dissimilar scan types or analysis methods Impression: The patient has normal bone mass. No significant bone loss was observed. Discussion: BONE DENSITY IS ABOVE THE MINIMUM DESIRABLE LEVEL AT ALL SKELETAL SITES TESTED. This patient's bone mineral density is above the minimum desirable level (T-score -1.0 or better) at all sites measured. The patient should follow a healthful lifestyle (good nutrition with adequate calcium and vitamin D, and appropriate weight-bearing exercise). Follow-Up: Consider repeating this study in 5 years or sooner if there is some new clinical indication. Reported by: GLENNA ORELLANA MD on 11/27/2022 10:16:00 AM.
== END ==
PROVIDERS: PCP Family Medicine; Referring Provider Family Medicine; Visit Provider Family Medicine
DX: Z78.0 Asymptomatic menopausal state (principal); Z13.820 Encounter for screening for osteoporosis
CPT/HCPCS: 77080

== ENCOUNTER → 2023-04-10 09:04 | Outpatient (CLI) | payer MEDICARE, SELFPAY ==
--- NOTE | 2023-04-10 | DI.ECHO.S_ITS ---
[facility]---------+ [facility] +---------+ : : [address] : [address] : : : : [phone] : : : : Phone: [phone]---------+ Echocardiogram Report + + :Name: ZOFIA CHAVEZ Study Date: 04/10/2023 Height: 64 in : :[facility] ReadingLocation: Weight: 133 lb : : Gender: Female BSA: 1.6 m2 : :: 1945 Age: 77 yrs BP: 136/80 mmHg: :Reason For Study: Atrial Fibrillation : :Ordering Physician: AJ, : :KANE Performed By: Grace Rosado : :Referring: KANE SALINAS : + + Interpretation Summary 1) Normal left ventricular thickness, size, wall motion, and systolic function (EF 60-65%). 2) Normal right ventricular size and function. 3) There is mild to moderate aortic regurgitation. 4) Compared to the Echo done 06/21/2020, aortic regurgitation has increased from mild to mild-moderate on this study. Procedure: A two-dimensional transthoracic echocardiogram with color flow and Doppler was performed. The study quality was technically difficult. Comparison is made with the echocardiogram of 06/21/2020. Left Ventricle: The left ventricle is normal in size and wall thickness. The ejection fraction is estimated to be 60-65%. Left ventricular systolic function appears normal without focal wall motion abnormalities. Diastolic parameters suggest a relaxation abnormality of the left ventricle, consistent with probable normal filling pressures. Right Ventricle: The right ventricle is normal in size and function. Atria: The left atrial size is normal. Right atrial size is normal. There is no Doppler evidence for an interatrial shunt. Mitral Valve: The mitral valve leaflets appear borderline thickened, but open well. There is no mitral valve stenosis. There is mild mitral regurgitation. Aortic Valve: The aortic valve is trileaflet. The aortic valve opens well. There is no aortic valve stenosis. There is mild to moderate aortic regurgitation. Tricuspid Valve: The tricuspid valve is normal. There is no tricuspid stenosis. There is mild tricuspid regurgitation. The right ventricular systolic pressure is estimated to be at least 21 mmHg based on an estimated right atrial pressure of 3 mm Hg. Pulmonic Valve: The pulmonic valve leaflets are thin and pliable; valve motion is normal. There is no pulmonic valvular stenosis. There is trace pulmonic regurgitation. Great Vessels: The aortic root is normal size. The ascending aorta is normal in size. The pulmonary artery is normal size. The IVC is of normal diameter and collapses greater than 50% with a sniff. This suggests a low right atrial pressure of 3 mm Hg. Pericardium/ Pleura There is a trivial pericardial effusion noted. There is no pleural effusion. MMode/2D Measurements & Calculations LVIDd: 4.0 cm LVOT diam: 2.0 cm LVIDs: 2.9 cm Ao root diam: 2.8 cm FS: 27.5 % asc Aorta Diam: 2.9 cm EPSS: 0.40 cm IVSd: 0.80 cm LVPWd: 1.0 cm LV gatica. diameter/BSA (cm/m^2): 2.4 LV sys. diameter/BSA (cm/m^2): 1.8 LA A2 area: 15.2 cm2 RA long axis: 4.5 cm LA A4 area: 12.2 cm2 RA area: 11.7 cm2 LA length (vol): 5.1 cm RA vol: 26.0 ml LA vol: 31.0 ml RA : 15.8 ml/m2 LA vol index: 18.9 ml/m2 IVC diam: 1.3 cm RVD1 (basal): 3.2 cm LVLs ap4: 5.6 cm LVLd ap2: 6.6 cm TAPSE_phl: 2.9 cm LVLs ap2: 5.1 cm Doppler Measurements & Calculations Ao V2 max: 117.7 cm/sec LVOT Max Anant: 104.5 cm/sec Ao V2 mean: 80.7 cm/sec LV V1 max P.4 mmHg Ao max P.0 mmHg LV V1 VTI: 24.4 cm Ao mean P.0 mmHg ELVI(I,D): 2.6 cm2 Ao V2 VTI: 29.0 cm ELVI(V,D): 2.8 cm2 sev ratio: 0.84 ELVI indexed to BSA (cm^2/m^2): 1.6 MV E max anant: 78.5 cm/sec TR max anant: 211.0 cm/sec MV A max anant: 60.7 cm/sec TR max P.8 mmHg MV E/A: 1.3 PA V2 max: 76.0 cm/sec Med Peak E' Anant: 6.8 cm/sec PA V2 mean: 50.8 cm/sec E/E' med: 11.6 PA mean P.0 mmHg Lat Peak E' Anant: 9.8 cm/sec PA pr(Accel): 16.0 mmHg E/E' lat: 8.0 E/e' average: 9.8 MV dec time: 0.22 sec SV(LVOT): 76.5 ml AV VR_phl: 0.89 ELVI(VTI)/BSA_phl: 1.6 Reading Physician:10:26 AM
[2023-04-10 10:32] LABS: Add Manual Diff / Slide Review NO; Basophils Absolute Auto 0 /uL (0-100); Basophils Percent Auto 0.6 % (0-2); Eosinophils Absolute Auto 100 /uL (0-450); Eosinophils Percent Auto 1.6 % (2-4); Hematocrit 41.5 % (36-46); Lymphocytes Absolute Auto 1200 /uL (1100-4500); Lymphocytes Percent Auto 23.5 % (25-40); Mean Corpuscular HGB Conc 33.7 % (30-36); Mean Corpuscular Hemoglobin 28.6 PG (26-34); Monocytes Absolute Auto 500 /uL (0-900); Monocytes Percent Auto 9.9 % (3-14); Neutrophils Absolute Auto 3300 /uL (1500-7000); Neutrophils Percent Auto 64.4 % (50-75); Platelet Count 250 X10^3/uL (150-400); Red Blood Cell Count 4.88 X10^6/uL (4.0-5.2); Red Cell Distribution Width 13.5 % (11.6-14.8); White Blood Cell Count 5.2 X10^3/uL (4.5-11.0)
[2023-04-10 10:57] LABS: BUN Creatinine Ratio 22.5 (6-22); Blood Urea Nitrogen 16 mg/dL (7-17); Calcium 9.7 mg/dL (8.4-10.2); Carbon Dioxide 28 mmol/L (22-32); Chloride 96 mmol/L (98-107); Cholesterol 195 mg/dL (140-199); Estimated Glomerular Filt Rate > 60 mL/min (>60); Glucose 85 mg/dL (80-110); HDL Cholesterol 101 mg/dL (40-60); HEMOLYSIS < 15 (0-50); LDL Cholesterol Calculated 81 mg/dL (<100); Potassium 5.1 mmol/L (3.4-5.1); Sodium 130 mmol/L (137-145); Triglycerides 65 mg/dL (35-150)
== END ==
PROVIDERS: PCP Family Medicine; Referring Provider Internal Medicine Cardiovascular Disease; Visit Provider Internal Medicine Cardiovascular Disease
DX: I10 Essential (primary) hypertension (principal); I48.0 Paroxysmal atrial fibrillation; I47.29 Other ventricular tachycardia; Z79.01 Long term (current) use of anticoagulants; I35.1 Nonrheumatic aortic (valve) insufficiency
CPT/HCPCS: 36415; 80048; 80061; 85025; 93306

== ENCOUNTER → 2023-05-05 17:22 | Outpatient (CLI) | payer MEDICARE, SELFPAY ==
--- NOTE | 2023-05-05 17:24 | DI.MG.S_ITS ---
BILATERAL DIGITAL SCREENING MAMMOGRAM 3D/2D WITH CAD: 05/05/2023 CLINICAL: Routine screening. Comparison is made to exams dated: 05/16/2021 mammogram, 05/06/2019 mammogram, and 06/17/2017 mammogram - [facility]. There are scattered areas of fibroglandular density in both breasts (category b / 25%-50% glandular tissue). Current study was also evaluated with a Computer Aided Detection (CAD) system. There are mole markers on the right breast. There is a mole marker on the left breast. No significant masses, calcifications, or other findings are seen in either breast. There has been no significant interval change. IMPRESSION: NEGATIVE There is no mammographic evidence of malignancy. A 1 year screening mammogram is recommended. Based on the Tyrer Cuzick model (a risk assessment model) the patient's lifetime risk is 1.9% and her 10 year risk is 0.0%. According to the ACR, ACS, and NCCN guidelines, an annual breast MRI exam along with mammogram is recommended if the patient's lifetime risk is 20% or greater. This exam was interpreted at Station ID: [id number]. NOTE: For mammograms, a report in lay terms will be sent to the patient. Approximately 15% of breast malignancies will not be visualized mammographically. In the management of a palpable breast mass, a negative mammogram must not discourage biopsy of a clinically suspicious lesion. Electronically Signed By: Sid gleason/bipin:05/06/2023 11:06:23 letter sent: Normal Exam ACR BI-RADS Category 1: Negative 3341F
== END ==
LOC: MAMMO 17:23
PROVIDERS: PCP Family Medicine; Referring Provider Family Medicine; Visit Provider Family Medicine
DX: Z12.31 Encounter for screening mammogram for malignant neoplasm of breast (principal)
CPT/HCPCS: 77063; 77067

== ENCOUNTER → 2023-11-28 11:38 | Outpatient (CLI) | payer MEDICARE, SELFPAY ==
[2023-11-28 13:16] LABS: TSH w/ Reflex to FT4 < 0.02 uIU/mL (0.47-4.68)
[2023-11-28 13:40] LABS: Free T4, Direct Thyroxine 2.26 ng/dL (0.78-2.19)
== END ==
PROVIDERS: PCP Family Medicine; Referring Provider Family Medicine; Visit Provider Family Medicine
DX: E05.90 Thyrotoxicosis, unspecified without thyrotoxic crisis or storm (principal)
CPT/HCPCS: 36415; 84439; 84443

== ENCOUNTER → 2024-01-07 15:19 | Outpatient (CLI) | payer MEDICARE, SELFPAY ==
[2024-01-07 17:12] LABS: Free T3, Triiodothyronine Free 3.58 pg/mL (2.77-5.27); Free T4, Direct Thyroxine 2.43 ng/dL (0.78-2.19)
[2024-01-07 17:27] LABS: Thyroid Stimulating Hormone < 0.015 uIU/mL (0.47-4.68)
== END ==
PROVIDERS: PCP Family Medicine; Referring Provider Family Medicine; Visit Provider Family Medicine
DX: E05.90 Thyrotoxicosis, unspecified without thyrotoxic crisis or storm (principal)
CPT/HCPCS: 36415; 84439; 84443; 84481

== ENCOUNTER → 2024-02-11 10:02 | Outpatient (CLI) | payer MEDICARE, SELFPAY | PROVIDERS: PCP Family Medicine; Referring Provider Physician Assistant; Visit Provider Physician Assistant | DX: N89.8 Other specified noninflammatory disorders of vagina (principal); R30.0 Dysuria | CPT/HCPCS: 87086; 87210 ==

== ENCOUNTER → 2024-02-14 09:26 | Outpatient (CLI) | payer MEDICARE, SELFPAY ==
[2024-02-14 11:19] LABS: Thyroid Stimulating Hormone 3.01 uIU/mL (0.47-4.68)
== END ==
PROVIDERS: PCP Family Medicine; Referring Provider Family Medicine; Visit Provider Family Medicine
DX: E05.90 Thyrotoxicosis, unspecified without thyrotoxic crisis or storm (principal); R23.2 Flushing; E03.9 Hypothyroidism, unspecified
CPT/HCPCS: 36415; 84439; 84443

== ENCOUNTER 2024-04-04 15:14 | Emergency (ER) | payer MEDICARE, SELFPAY ==
[2024-04-04 15:28] VITALS: BP 166/78; PULSE 87; RESP 18; TEMP 36.6; O2SAT 97; BMI 21.9
[2024-04-04 15:38] VITALS: BP 169/88; PULSE 93; O2SAT 97
[2024-04-04 15:46] VITALS: BP 171/90; PULSE 85; RESP 15; O2SAT 97
--- NOTE | 2024-04-04 15:54 | ED.NEUROSD ---
HPI - Neuro Symptoms/Deficit General Chief Complaint: Neuro Symptoms/Deficit Stated Complaint: Concerned I had a stroke a few days ago Time Seen by Provider: 04/04/24 15:54 Source: patient Mode of arrival: Ambulatory History of Present Illness HPI Narrative: Patient is a 78-year-old female history of hypertension hypothyroidism migraines with aura comes into the ED from home for evaluation of headache. States that this is typical of her migraine headaches has been ongoing for the past 5 days, states that she does get migraines with auras specifically to her left eye, as well as some mild confusion. States this has been ongoing for the past 5 days, states that this is typical of her symptoms, however she states that she was talking to some family and friends and they were worried she might have had a stroke. At time of initial evaluation patient not complaining of any symptoms, no visual disturbances NIH of 0 no chest pain no shortness of breath states that she is only here to be ?checked out. On Anticoagulants: No Related Data Home Medications Medication Instructions Recorded Confirmed aspirin 325 mg tablet,delayed 325 mg PO QDAYP ##0 02/01/13 02/16/24 release montelukast 10 mg tablet 10 mg PO DAILY 06/25/23 02/16/24 cetirizine 10 mg capsule (Zyrtec) 10 mg PO DAILY PRN 01/14/24 02/16/24 flecainide 50 mg tablet 50 mg PO BID 01/14/24 02/16/24 fluticasone propionate 50 2 spray intranasal DAILY 01/14/24 02/16/24 mcg/actuation nasal spray,suspension (Flonase Allergy Relief) Previous Rx's Medication Instructions Recorded estradiol 0.01% (0.1 mg/gram) 1 appful vaginal DAILY #42.5 grams 02/11/24 vaginal cream Levothyroxine Liothyronine 62-15 65 mcg PO DAILY #30 caps 02/16/24 mcg estradiol 0.5 mg tablet 0.5 mg PO DAILY 90 days #90 tabs 02/16/24 Allergies Allergy/AdvReac Type Severity Reaction Status Date / Time shellfish derived Allergy Unknown PT GETS Verified 02/16/24 12:08 [SHELLFISH DERIVED] ITCHY Review of Systems Review of Systems Narrative: General: Denies fever, chills, weight loss HEENT: Positive headache, denies, eye drainage, eye irritation, head trauma, sore throat, voice change Cardiovascular: Denies any chest pain, palpitations, shortness of breath, tachycardia Respiratory: Denies any shortness of breath, cough, wheeze, stridor GI/: Denies any abdominal pain, nausea, vomiting, diarrhea, bright red blood per rectum, melanotic stools, urinary frequency, urinary retention, dysuria, hematuria MSK: Denies any joint pain, muscle pains, swelling Skin: Denies any rashes, lesions, discoloration Neuro: Denies any headache, lightheadedness, dizziness, fainting, weakness, left eye aura/scotoma Psych: Denies SI/HI Hematologic/Lymphatic On Anticoagulants: No Patient History Medical History (Updated 04/04/24 @ 17:45 by Casper Borges DO) Allergies (~2004) Migraine with aura Rubella (~1949) Measles (~1949) Fibroids (~1990) Hyperthyroidism SAQIB (stress urinary incontinence, female) Cystocele Hot flashes Paroxysmal atrial fibrillation (~03/2019) Hypothyroidism (~2009) Surgical History (Updated 08/03/23 @ 21:47 by Brinda Scherer) Anesthesia History of bladder surgery (~2015) History of cholecystectomy (~2010) History of appendectomy (~2010) History of hysterectomy (~1990) History of cataract removal with insertion of prosthetic lens (~2016) Family History (Updated 08/03/23 @ 21:51 by Brinda Scherer) Father Alcoholic History of heart disease Mother History of heart disease Stroke Atrial fibrillation Brother Diabetes mellitus Brother Diabetes mellitus Alzheimer's disease Brother Diabetes mellitus Hypertension Hyperlipidemia Grandfather Cancer Grandmother Stroke Social History Smoking Status: Never smoker Smoking Status: Never smoker alcohol intake frequency: a few times a month Substance Use Type: does not use Exam Narrative Exam Narrative: General: Cooperative, comfortable, well-developed, not in acute distress HEENT: Normocephalic, atraumatic, PERRLA, normal sclera, eyelids normal, Neck: Active full range of motion, atraumatic Chest: Normal to inspection, negative crepitus, no overlying erythema ecchymosis Respiratory: Normal respiratory effort, not in acute respiratory distress, clear to auscultation bilaterally negative cough, wheeze, tachypnea, rhonchi, rales Cardiology: Regular rate rhythm negative gallop, murmur, rubs GI/: Normal to inspection, soft, nonrigid, no tenderness to palpation, exam deferred MSK: Full range of active range of motion of all 4 extremities, atraumatic Skin: No rashes lesions noted Neuro: Alert awake oriented x3, moves all 4 extremities spontaneously, cranial nerves intact, able to answer all questions appropriately follows commands appropriately, NIH of 0 Psych: Cooperative, negative suicidal or homicidal ideations Initial Vital Signs Initial Vital Signs: Vital Signs Temperature 98 F 04/04/24 15:28 Pulse Rate 87 04/04/24 15:28 Respiratory Rate 18 04/04/24 15:28 Blood Pressure 166/78 H 04/04/24 15:28 Pulse Oximetry 97 04/04/24 15:28 Oxygen Delivery Method Room Air 04/04/24 15:28 Course Orders Ordered: ED Orders 04/04/24 15:47 BMP [Basic Metabolic Panel] Stat CBC Auto Diff [Complete Blood Count AUTO DIFF] Stat 04/04/24 15:59 CT angio head and neck Stat CT head/brain wo con Stat Vital Signs Vital signs: Vital Signs - 8 hr 04/04/24 15:28 04/04/24 15:38 04/04/24 15:38 Temperature 98 F Pulse Rate 87 93 H Respiratory Rate 18 Blood Pressure 166/78 H 169/88 H Pulse Oximetry 97 97 Oxygen Delivery Method Room Air 04/04/24 15:46 04/04/24 15:46 04/04/24 16:00 Temperature Pulse Rate 85 83 Respiratory Rate 15 22 Blood Pressure 171/90 H Pulse Oximetry 97 98 Oxygen Delivery Method 04/04/24 16:30 04/04/24 16:30 Temperature Pulse Rate 78 Respiratory Rate 15 Blood Pressure 187/89 H Pulse Oximetry 97 Oxygen Delivery Method MDM - Neuro Symptoms/Deficit Differential Diagnosis Differential diagnosis: Likely subarachnoid hemorrhage, cerebrovascular accident and other (Electrolyte abnormality) Lab Data 04/04/24 15:47 04/04/24 15:47 Labs: Lab Results 04/04/24 Range/Units 15:47 WBC 9.7 (4.5-11.0) X10^3/uL RBC 5.58 H (4.0-5.2) X10^6/uL Hgb 14.9 (12.0-16.0) g/dL Hct 45.3 (36-46) % MCV 81.2 (80-100) fL MCH 26.8 (26-34) PG MCHC 33.0 (30-36) % RDW 15.5 H (11.6-14.8) % Plt Count 239 (150-400) X10^3/uL Neut % (Auto) 69.5 (50-75) % Lymph % (Auto) 19.2 L (25-40) % [place] % (Auto) 9.1 (3-14) % Eos % (Auto) 1.2 L (2-4) % Baso % (Auto) 1.0 (0-2) % Neut # (Auto) 6700 (7246-8957) /uL Lymph # (Auto) 1900 (1906-6092) /uL [place] # (Auto) 900 (0-900) /uL Eos # (Auto) 100 (0-450) /uL Baso # (Auto) 100 (0-100) /uL Sodium 130 L (137-145) mmol/L Potassium 4.3 (3.4-5.1) mmol/L Chloride 96 L (98-107) mmol/L Carbon Dioxide 25 (22-32) mmol/L BUN 16 (7-17) mg/dL Creatinine 0.72 (0.52-1.04) mg/dL Estimated GFR > 60 (>60) mL/min BUN/Creatinine Ratio 22.2 H (6-22) Glucose 99 (80-110) mg/dL Calcium 10.3 H (8.4-10.2) mg/dL Imaging Data CT scan - head: Radiologist's Impression: [place] [address] CT Scan Report Signed Patient: Roseline Ly MR#: [id number] : 1945 Acct:[id number] Age/Sex: 78 / F Date of Service: 04/04/24 Loc: ED Accession Number: [id number] Procedure: CT head/brain wo con Ordering Provider: Casper Borges D.O. PROCEDURE: CT HEAD/BRAIN WO CON INDICATIONS: Headache TECHNIQUE: Noncontrast 4.5 mm thick angled axial sections acquired from the foramen magnum to the vertex, with coronal and sagittal reformats. For radiation dose reduction, the following was used: automated exposure control, adjustment of mA and/or kV according to patient size. COMPARISON: [facility], CT, CT ANGIO HEAD AND NECK, 04/04/2024, 16:04. (Additional prior imaging is not available for review from the archive at the time of this dictation.) FINDINGS: Image quality: Diagnostic. CSF spaces: Basal cisterns are patent. No extra-axial fluid collections. The ventricles are symmetric in size and shape. Brain: No intracranial bleeds or masses. There is cerebral volume loss for age, with resultant ventricular and sulcal prominence. There are periventricular and deep white matter chronic small vessel ischemic changes. There is intracranial internal carotid artery atherosclerosis. Skull and face: Calvarium and visualized facial bones appear intact, without suspicious lesions. Sinuses: Visualized sinuses and mastoids are clear. IMPRESSION: No acute intracranial hemorrhage is seen. No acute intracranial pathology. If there is strong clinical suspicion for an acute stroke, please consider a brain MRI for further evaluation, as it is more sensitive (assuming that there is no contraindication to MRI). CTA - brain/neck: Radiologist's Impression: [place] [address] CT Scan Report Signed Patient: Roseline Ly MR#: [id number] : 1945 Acct:[id number] Age/Sex: 78 / F Date of Service: 04/04/24 Loc: ED Accession Number: [id number] Procedure: CT angio head and neck Ordering Provider: Casper Borges D.O. PROCEDURE: CT ANGIO HEAD AND NECK INDICATIONS: headache with left eye aura TECHNIQUE: After the administration of intravenous contrast, 1 mm thick sections acquired from the aortic arch through the [place] of [place]. 3-dimensional bwppmhe-vlsfdgpkg-qitafluhyz (MIP) and/or volume rendering reformats were acquired of the central intracranial vasculature and neck separately. For radiation dose reduction, the following was used: automated exposure control, adjustment of mA and/or kV according to patient size. COMPARISON: [facility], CT, CT HEAD/BRAIN WO CON, 04/04/2024, 16:04. FINDINGS: Image quality: Limited by bolus timing, with venous contamination. There is streak artifact seen through the level of the shoulders. BRAIN: CSF spaces: Ventricles are normal in size and shape. Basal cisterns are patent. No extra-axial fluid collections. Brain: No significant abnormality of the brain can be seen. Skull and face: Calvarium and facial bones appear intact, without suspicious lesions. Orbits appear normal. Sinuses: Sinuses and mastoids are clear. HEAD CT ANGIOGRAPHY: Anterior circulation: Intracranial internal carotid arteries are normal in size and flow. The flow within the paired anterior cerebral arteries is normal and symmetric. The flow within the middle cerebral arteries is normal and symmetric. The anterior communicating artery is seen. No aneurysms are seen. Posterior circulation: Visualized portions of the vertebral arteries demonstrate normal caliber, and join to form a normal appearing basilar artery. Flow within the posterior cerebral arteries is normal and symmetric. No aneurysms are seen. NECK CT ANGIOGRAPHY: Carotid system: The great vessels demonstrate a conventional anatomy as they arise from the aortic arch. The origins of the common carotid arteries appear patent. The common carotid arteries demonstrate normal caliber and courses. The bifurcation regions are both widely patent. The internal carotid arteries demonstrate normal calibers and courses. Posterior circulation: The origins of the vertebral arteries both appear widely patent. The more superior extracranial portions of both vertebral arteries also demonstrate normal courses and calibers. They join to form a normal appearing basilar artery. Soft tissues: Visualized neck soft tissues demonstrate no suspicious abnormalities. Bones: No suspicious bony lesions. Visualized cervical spine appears normally aligned. Moderate cervical spine degenerative change can be seen. IMPRESSION: No significant intracranial arterial abnormality is seen. No significant abnormality is seen within the arteries of the neck. No findings of dissection are seen. Additional findings: Moderate cervical spine degenerative change Any quantitative measurements of stenosis were performed using NASCET criteria. MDM Narrative Medical decision making narrative: Patient is a 78-year-old female history hypertension hyperlipidemia presents to the ED for evaluation of migraine headache with aura, states this is similar to her previous in regards to symptoms, however she states that she was told she could have a stroke by friends and family and came to the ED for evaluation treatment. No trauma no falls not on any blood thinners at time of initial evaluation patient without any headaches or aura no visual disturbances. States that her symptoms did resolve yesterday but decided come into the ED for evaluation. NIH of 0. No focal deficits. CT scan without any signs of acute findings, informed patient to follow up with Neurology and PCP in outpatient setting, verbalized understanding of this agrees to being discharged home with outpatient follow up Discharge Plan Departure Patient Disposition: Home Clinical Impression: Migraine with aura Activity Restrictions/Additional Instructions: Please follow up Neurology and PCP Please read the discharge instructions sheet carefully and bring all papers to all doctor follow-up visits, as it may contain information that your doctor may want to see. Disease processes change and evolve, if your symptoms worsen or if you develop any new symptoms that are concerning to you please return for evaluation. Your evaluation today does not show any evidence of any life-threatening/serious illnesses requiring admission to the hospital or surgery. Please follow-up with your doctor for re-evaluation in approximately 1 day. Seek immediate medical attention for any worrisome symptoms. Prescriptions: No Action montelukast 10 mg tablet 10 mg PO DAILY flecainide 50 mg tablet 50 mg PO BID fluticasone propionate [Flonase Allergy Relief] 50 mcg/actuation spray,suspension 2 spray intranasal DAILY Rx Instructions: administer into each nostril Zyrtec 10 mg capsule 10 mg PO DAILY PRN estradiol 0.5 mg tablet 0.5 mg PO DAILY 90 Days Qty: 90 4RF Levothyroxine Liothyronine 62-15 mcg capsule 65 mcg PO DAILY Qty: 30 0RF Rx Instructions: Levothyroxine Liothyronine 62-15 mcg estradiol 0.01 % (0.1 mg/gram) cream 1 appful vaginal DAILY Qty: 42.5 0RF Rx Instructions: for 14 days aspirin 325 MG tablet,delayed release (DR/EC) 325 mg PO QDAYP Qty: 0 Referrals: Addie Lopez MD [Primary Care Provider] - Stand Alone Forms: Patient Portal/API
--- NOTE | 2024-04-04 15:59 | DI.CT.S_ITS ---
PROCEDURE: CT HEAD/BRAIN WO CON INDICATIONS: Headache TECHNIQUE: Noncontrast 4.5 mm thick angled axial sections acquired from the foramen magnum to the vertex, with coronal and sagittal reformats. For radiation dose reduction, the following was used: automated exposure control, adjustment of mA and/or kV according to patient size. COMPARISON: [facility], CT, CT ANGIO HEAD AND NECK, 04/04/2024, 16:04. (Additional prior imaging is not available for review from the archive at the time of this dictation.) FINDINGS: Image quality: Diagnostic. CSF spaces: Basal cisterns are patent. No extra-axial fluid collections. The ventricles are symmetric in size and shape. Brain: No intracranial bleeds or masses. There is cerebral volume loss for age, with resultant ventricular and sulcal prominence. There are periventricular and deep white matter chronic small vessel ischemic changes. There is intracranial internal carotid artery atherosclerosis. Skull and face: Calvarium and visualized facial bones appear intact, without suspicious lesions. Sinuses: Visualized sinuses and mastoids are clear. IMPRESSION: No acute intracranial hemorrhage is seen. No acute intracranial pathology. If there is strong clinical suspicion for an acute stroke, please consider a brain MRI for further evaluation, as it is more sensitive (assuming that there is no contraindication to MRI). Dictated by: Lloyd Portillo M.D. on 04/04/2024 at 16:30 Approved by: Lloyd Portillo M.D. on 04/04/2024 at 16:30
--- NOTE | 2024-04-04 15:59 | DI.CT.S_ITS ---
PROCEDURE: CT ANGIO HEAD AND NECK INDICATIONS: headache with left eye aura TECHNIQUE: After the administration of intravenous contrast, 1 mm thick sections acquired from the aortic arch through the [place] of [place]. 3-dimensional xjpdaep-pjiggzrsl-tpgeqsgpna (MIP) and/or volume rendering reformats were acquired of the central intracranial vasculature and neck separately. For radiation dose reduction, the following was used: automated exposure control, adjustment of mA and/or kV according to patient size. COMPARISON: [facility], CT, CT HEAD/BRAIN WO CON, 04/04/2024, 16:04. FINDINGS: Image quality: Limited by bolus timing, with venous contamination. There is streak artifact seen through the level of the shoulders. BRAIN: CSF spaces: Ventricles are normal in size and shape. Basal cisterns are patent. No extra-axial fluid collections. Brain: No significant abnormality of the brain can be seen. Skull and face: Calvarium and facial bones appear intact, without suspicious lesions. Orbits appear normal. Sinuses: Sinuses and mastoids are clear. HEAD CT ANGIOGRAPHY: Anterior circulation: Intracranial internal carotid arteries are normal in size and flow. The flow within the paired anterior cerebral arteries is normal and symmetric. The flow within the middle cerebral arteries is normal and symmetric. The anterior communicating artery is seen. No aneurysms are seen. Posterior circulation: Visualized portions of the vertebral arteries demonstrate normal caliber, and join to form a normal appearing basilar artery. Flow within the posterior cerebral arteries is normal and symmetric. No aneurysms are seen. NECK CT ANGIOGRAPHY: Carotid system: The great vessels demonstrate a conventional anatomy as they arise from the aortic arch. The origins of the common carotid arteries appear patent. The common carotid arteries demonstrate normal caliber and courses. The bifurcation regions are both widely patent. The internal carotid arteries demonstrate normal calibers and courses. Posterior circulation: The origins of the vertebral arteries both appear widely patent. The more superior extracranial portions of both vertebral arteries also demonstrate normal courses and calibers. They join to form a normal appearing basilar artery. Soft tissues: Visualized neck soft tissues demonstrate no suspicious abnormalities. Bones: No suspicious bony lesions. Visualized cervical spine appears normally aligned. Moderate cervical spine degenerative change can be seen. IMPRESSION: No significant intracranial arterial abnormality is seen. No significant abnormality is seen within the arteries of the neck. No findings of dissection are seen. Additional findings: Moderate cervical spine degenerative change Any quantitative measurements of stenosis were performed using NASCET criteria. Dictated by: Lloyd Portillo M.D. on 04/04/2024 at 16:27 Approved by: Lloyd Portillo M.D. on 04/04/2024 at 16:29
[2024-04-04 16:00] VITALS: PULSE 83; RESP 22; O2SAT 98
[2024-04-04 16:09] LABS: Add Manual Diff / Slide Review NO; Basophils Absolute Auto 100 /uL (0-100); Eosinophils Absolute Auto 100 /uL (0-450); Eosinophils Percent Auto 1.2 % (2-4); Hematocrit 45.3 % (36-46); Hemoglobin 14.9 g/dL (12.0-16.0); Lymphocytes Absolute Auto 1900 /uL (1100-4500); Lymphocytes Percent Auto 19.2 % (25-40); Mean Corpuscular Hemoglobin 26.8 PG (26-34); Mean Corpuscular Volume 81.2 fL (80-100); Monocytes Absolute Auto 900 /uL (0-900); Monocytes Percent Auto 9.1 % (3-14); Neutrophils Absolute Auto 6700 /uL (1500-7000); Neutrophils Percent Auto 69.5 % (50-75); Platelet Count 239 X10^3/uL (150-400); Red Blood Cell Count 5.58 X10^6/uL (4.0-5.2); Red Cell Distribution Width 15.5 % (11.6-14.8); White Blood Cell Count 9.7 X10^3/uL (4.5-11.0)
[2024-04-04 16:13] LABS: BUN Creatinine Ratio 22.2 (6-22); Blood Urea Nitrogen 16 mg/dL (7-17); Calcium 10.3 mg/dL (8.4-10.2); Carbon Dioxide 25 mmol/L (22-32); Chloride 96 mmol/L (98-107); Estimated Glomerular Filt Rate > 60 mL/min (>60); Glucose 99 mg/dL (80-110); HEMOLYSIS < 15 (0-50); Potassium 4.3 mmol/L (3.4-5.1); Sodium 130 mmol/L (137-145)
[2024-04-04 16:30] VITALS: BP 187/89; PULSE 78; RESP 15; O2SAT 97
[2024-04-04 18:03] VITALS: BP 171/85; PULSE 81; RESP 20; TEMP 37; O2SAT 100
== END 2024-04-04 18:04 | disposition home or self-care (01) ==
PROVIDERS: Emergency Provider Student in an Organized Health Care Education/Training Program; PCP Family Medicine
DX: G43.109 Migraine with aura, not intractable, without status migrainosus (principal); R41.0 Disorientation, unspecified
CPT/HCPCS: 70450; 70496; 70498; 80048; 85025; 99281; 99284

== ENCOUNTER → 2024-05-17 10:33 | Outpatient (CLI) | payer MEDICARE, SELFPAY ==
[2024-05-17 12:22] LABS: Hematocrit 46.3 % (36-46); Hemoglobin 15.4 g/dL (12.0-16.0); Mean Corpuscular HGB Conc 33.2 % (30-36); Mean Corpuscular Hemoglobin 27.4 PG (26-34); Mean Corpuscular Volume 82.5 fL (80-100); Platelet Count 249 X10^3/uL (150-400); Red Blood Cell Count 5.62 X10^6/uL (4.0-5.2); Red Cell Distribution Width 17.1 % (11.6-14.8); White Blood Cell Count 7.1 X10^3/uL (4.5-11.0)
[2024-05-17 12:46] LABS: BUN Creatinine Ratio 17.8 (6-22); Blood Urea Nitrogen 13 mg/dL (7-17); Carbon Dioxide 28 mmol/L (22-32); Chloride 95 mmol/L (98-107); Cholesterol 259 mg/dL (140-199); Estimated Glomerular Filt Rate > 60 mL/min (>60); Glucose 83 mg/dL (80-110); HEMOLYSIS < 15 (0-50); Potassium 5.3 mmol/L (3.4-5.1); Sodium 130 mmol/L (137-145); Triglycerides 89 mg/dL (35-150)
[2024-05-17 12:53] LABS: HDL Cholesterol 125 mg/dL (40-60); LDL Cholesterol Calculated 116 mg/dL (<100)
== END ==
LOC: LAB 10:35
PROVIDERS: PCP Family Medicine; Referring Provider Internal Medicine Cardiovascular Disease; Visit Provider Internal Medicine Cardiovascular Disease
DX: Z00.01 Encounter for general adult medical examination with abnormal findings (principal); Z79.01 Long term (current) use of anticoagulants; I48.0 Paroxysmal atrial fibrillation
CPT/HCPCS: 36415; 80048; 80061; 85027

== ENCOUNTER → 2024-06-18 09:42 | Outpatient (CLI) | payer MEDICARE, SELFPAY ==
--- NOTE | 2024-06-18 09:44 | DI.MG.S_ITS ---
BILATERAL DIGITAL DIAGNOSTIC MAMMOGRAM 3D/2D: 06/18/2024 CLINICAL: Bilateral non-focal breast pain. Comparison is made to exams dated: 05/05/2023 mammogram, 05/16/2021 mammogram, and 05/06/2019 mammogram - [facility]. There are scattered areas of fibroglandular density (category b / 25%-50% glandular tissue). No significant masses, calcifications, or other findings are seen in either breast. Of note, because the patient's symptoms are diffuse, no BB marker was placed. IMPRESSION: NEGATIVE No mammographic evidence of malignancy. A 1 year screening mammogram is recommended. Diffuse, non-focal symptoms, such as pain or fullness are typically benign. Clinical follow-up is recommended, and further management of these symptoms should be based on the results of clinical evaluation. If diffuse symptoms persist or become more focal in nature, further clinical evaluation should be considered. Findings and recommendations were conveyed to the patient during today's evaluation. Based on the Tyrer Cuzick model (a risk assessment model) the patient's lifetime risk is 1.6% and her 10 year risk is 0.0%. According to the ACR, ACS, and NCCN guidelines, an annual breast MRI exam along with mammogram is recommended if the patient's lifetime risk is 20% or greater. This exam was interpreted at Station ID: [id number]. NOTE: For mammograms, a report in lay terms will be sent to the patient. Approximately 15% of breast malignancies will not be visualized mammographically. In the management of a palpable breast mass, a negative mammogram must not discourage biopsy of a clinically suspicious lesion. Electronically Signed By: Dennise Esquivel M.D., Ph.D. eb/:06/18/2024 10:33:56 letter sent: Clinical Evaluation ACR BI-RADS Category 1: Negative
== END ==
PROVIDERS: PCP Family Medicine; Referring Provider Family Medicine; Visit Provider Family Medicine
DX: R92.8 Other abnormal and inconclusive findings on diagnostic imaging of breast (principal); N64.4 Mastodynia; Z87.898 Personal history of other specified conditions
CPT/HCPCS: 77066; G0279

== ENCOUNTER → 2024-07-09 07:58 | Outpatient (CLI) | payer MEDICARE, SELFPAY ==
--- NOTE | 2024-07-09 08:00 | DI.US.S_ITS ---
PROCEDURE: US ARTERIAL DUPLEX LE BI INDICATIONS: Quantflow- L flow: 0.64 (nml 1-1.4)R flow:0.78 (nml 1-1.4) TECHNIQUE: Color and pulse Doppler interrogation was performed of both lower extremity arterial systems, with image documentation. COMPARISON: None. FINDINGS: Right lower extremity: Common femoral artery: 105.6 cm/sec, with triphasic flow. Deep femoral artery: 78.4 cm/sec, with triphasic flow. Proximal superficial femoral artery: 90 cm/sec, with triphasic flow. Mid superficial femoral artery: 74.5 cm/sec, with triphasic flow. Distal superficial femoral artery: 71 point cm/sec, with triphasic flow. Popliteal artery: 62.4 cm/sec, with triphasic flow. Posterior tibial artery: 47.5 cm/sec, with triphasic flow. Anterior tibial artery/dorsalis pedis: 50 cm/sec, with triphasic flow. Shaikh-scale imaging description: No significant atheromatous disease. Left lower extremity: Common femoral artery: 113.2 cm/sec, with triphasic flow. Deep femoral artery: 81.5 cm/sec, with triphasic flow. Proximal superficial femoral artery: 08.5 cm/sec, with triphasic flow. Mid superficial femoral artery: 93.2 cm/sec, with triphasic flow. Distal superficial femoral artery: 65.2 cm/sec, with triphasic flow. Popliteal artery: 52.8 cm/sec, with triphasic flow. Posterior tibial artery: 46 cm/sec, with triphasic flow. Anterior tibial artery/dorsalis pedis: 49.5 cm/sec, with triphasic flow. Shaikh-scale imaging description: No significant atheromatous disease. IMPRESSION: 1-19 % stenosis of the right and left common femoral arteries. Dictated by: Jeison Patrick M.D. on 07/10/2024 at 20:42 Approved by: Jeison Patrick M.D. on 07/10/2024 at 20:45
[2024-07-09 10:54] LABS: Free T4, Direct Thyroxine 1.34 ng/dL (0.78-2.19)
[2024-07-09 11:08] LABS: Thyroid Stimulating Hormone 0.375 uIU/mL (0.47-4.68)
== END ==
PROVIDERS: Student in an Organized Health Care Education/Training Program; PCP Family Medicine; Referring Provider Family Medicine; Visit Provider Family Medicine
DX: E03.9 Hypothyroidism, unspecified (principal); I73.9 Peripheral vascular disease, unspecified
CPT/HCPCS: 36415; 84439; 84443; 93925

== ENCOUNTER → 2024-08-24 08:45 | Outpatient (CLI) | payer MEDICARE, SELFPAY ==
[2024-08-24 10:40] LABS: Free T4, Direct Thyroxine 1.01 ng/dL (0.78-2.19)
== END ==
PROVIDERS: PCP Family Medicine; Referring Provider Student in an Organized Health Care Education/Training Program; Visit Provider Student in an Organized Health Care Education/Training Program
DX: E03.9 Hypothyroidism, unspecified (principal)
CPT/HCPCS: 36415; 84439; 84443

== ENCOUNTER 2025-04-09 16:02 | Emergency (ER) | payer MEDICARE, SELFPAY ==
[2025-04-09 16:07] VITALS: BP 198/96; PULSE 88; RESP 16; TEMP 36.3; O2SAT 97; BMI 22.1
--- NOTE | 2025-04-09 17:09 | PC.NURSE ---
lac to occipital area of scalp not currently bleeding but dressed in gauze awaiting provider exam pt denies loc
--- NOTE | 2025-04-09 17:59 | ED.HEATRA ---
HPI - Head Injury General Chief complaint: Head Injury Stated complaint: MYRANDA hid her head Time Seen by Provider: 04/09/25 17:57 Source: patient Mode of arrival: Ambulatory History of Present Illness HPI Narrative: 79-year-old female history of hypertension, atrial fibrillation not on anticoagulation, hypothyroidism, migraine with aura, tripped over the netting from the plants hitting her head against the cement. She subsequently took some aspirin for the pain but the bleeding started and she came in to be evaluated. Patient denies bowel or bladder incontinence, back, abdominal, and chest pain, nausea, vomiting, blurred vision, shortness of breath, but does endorse neck pain, and headache. Other than what is stated 14 point review of system is negative. Related Data Home Medications ?Medication ?Instructions ?Recorded ?Confirmed aspirin 325 mg tablet,delayed 325 mg PO QDAYP ##0 02/01/13 06/04/24 release montelukast 10 mg tablet 10 mg PO DAILY 06/25/23 06/04/24 cetirizine 10 mg capsule (Zyrtec) 10 mg PO DAILY PRN 01/14/24 06/04/24 fluticasone propionate 50 2 spray intranasal DAILY 01/14/24 06/04/24 mcg/actuation nasal spray,suspension (Flonase Allergy Relief) nebivolol 2.5 mg tablet 2.5 mg PO DAILY 04/13/24 06/04/24 Previous Rx's ?Medication ?Instructions ?Recorded sumatriptan succinate 50 mg tablet See Rx Instructions PO .COMPLEX 04/13/24 #20 tabs estradiol 0.5 mg tablet 0.5 mg PO DAILY 90 days #90 tabs 04/30/24 estradiol 0.01% (0.1 mg/gram) 1 appful vaginal DAILY #42.5 grams 05/17/24 vaginal cream Levothyroxine Liothyronine 62-15 65 mcg PO DAILY #90 caps 07/21/24 mcg Allergies Allergy/AdvReac Type Severity Reaction Status Date / Time shellfish derived (SHELLFISH Allergy Unknown PT GETS Verified 04/09/25 16:07 DERIVED) ITCHY Review of Systems Review of Systems ROS Unobtainable: All systems reviewed & are unremarkable except as noted in HPI and below Patient History Medical History (Updated 04/09/25 @ 19:08 by Derik Esparza, ) Tingling of upper extremity and face Allergies (~2004) Migraine with aura Rubella (~1949) Measles (~1949) Fibroids (~1990) Hyperthyroidism SAQIB (stress urinary incontinence, female) Cystocele Hot flashes Paroxysmal atrial fibrillation (~03/2019) Hypothyroidism (~2009) Surgical History (Updated 08/03/23 @ 21:47 by Brinda Scherer) Anesthesia History of bladder surgery (~2015) History of cholecystectomy (~2010) History of appendectomy (~2010) History of hysterectomy (~1990) History of cataract removal with insertion of prosthetic lens (~2016) Family History (Updated 08/03/23 @ 21:51 by Brinda Scherer) Father Alcoholic History of heart disease Mother History of heart disease Stroke Atrial fibrillation Brother Diabetes mellitus Brother Diabetes mellitus Alzheimer's disease Brother Diabetes mellitus Hypertension Hyperlipidemia Grandfather Cancer Grandmother Stroke Social History Smoking Status: Never smoker Smoking Status: Never smoker alcohol intake frequency: a few times a month Alcohol type: wine Exam Narrative Exam Narrative: GENERAL: [79] year old patient appears stated age. Well-developed patient, in mild distress. HEAD: Atraumatic. Normocephalic. EYES: Pupils equal round and reactive. Extraocular motions intact. No scleral icterus. No injection or drainage. ENT: Nose without bleeding, purulent drainage. Throat without erythema, tonsillar hypertrophy or exudate. Airway patent. NECK: Trachea midline. Bilateral paracervical tenderness to palpation C4-7 but no midline ttp of c/t/l no stepoff or creptitus CARDIOVASCULAR: Regular rate and rhythm without murmurs, gallops, or rubs. RESPIRATORY: Clear to auscultation. Breath sounds equal bilaterally. No wheezes, rales, or rhonchi. GASTROINTESTINAL: Abdomen soft, non-tender, nondistended. EXTREMITIES: No edema or joint tenderness. BACK: Nontender without deformity or crepitance. No flank tenderness. NEURO: AOx3. SKIN: Jagged irregular linear scalp laceration 1x1cm Initial Vital Signs Initial Vital Signs: Vital Signs Temperature 97.4 F L 04/09/25 16:07 Pulse Rate 88 04/09/25 16:07 Respiratory Rate 16 04/09/25 16:07 Blood Pressure 198/96 H 04/09/25 16:07 Pulse Oximetry 97 04/09/25 16:07 Oxygen Delivery Method Room Air 04/09/25 16:07 Procedures Laceration Repair Laceration 1: Time of procedure: 19:06 Site: scalp Size (cm): 1 Description: linear Depth: simple, single layer Local Anesthetic: lidocaine 1% and with epi Amount of anesthesia used (mL): 3 Pre-repair: wound explored and irrigated extensively Skin layer closed with: jailene Skin layer suture size: other Number of sutures: 3 Course Vital Signs Vital signs: Vital Signs - 8 hr 04/09/25 16:07 Temperature 97.4 F L Pulse Rate 88 Respiratory Rate 16 Blood Pressure 198/96 H Pulse Oximetry 97 Oxygen Delivery Method Room Air MDM - Head Injury Imaging Data CT scan - head: Radiologist's Impression: [address] [address] [address] Scan Report Signed Patient: Roseline Ly MR#: [id number] : 1945 Acct:[id number] Age/Sex: 79 / F Date of Service: 04/09/25 Loc: ED Accession Number: [id number] Procedure: CT head/brain wo con Ordering Provider: Derik Esparza D.O. PROCEDURE: CT HEAD/BRAIN WO CON INDICATIONS: fall trauma TECHNIQUE: Noncontrast 4.5 mm thick angled axial sections acquired from the foramen magnum to the vertex, with coronal and sagittal reformats. For radiation dose reduction, the following was used: automated exposure control, adjustment of mA and/or kV according to patient size. COMPARISON: [facility], CT, CT HEAD/BRAIN WO CON, 04/04/2024, 16:04. FINDINGS: CSF spaces: Basal cisterns are patent. No extra-axial fluid collections. Ventricles are normal in size and shape. Brain: No midline shift. No intracranial mass effect or hemorrhage. Shaikh-white matter interface is normal. Skull and face: Calvarium and visualized facial bones are intact, without suspicious lesions. Sinuses: Visualized sinuses and mastoids are clear. IMPRESSION: Age-appropriate atrophy and chronic ischemic change without acute hemorrhage or mass effect CT - cervical spine: Radiologist's Impression: [address] [address] [address] Scan Report Signed Patient: Roseline Ly MR#: [id number] : 1945 Acct:[id number] Age/Sex: 79 / F Date of Service: 04/09/25 Loc: ED Accession Number: [id number] Procedure: CT cervical spine wo con Ordering Provider: Derik Esparza D.O. PROCEDURE: CT CERVICAL SPINE WO CON INDICATIONS: fall trauma TECHNIQUE: Noncontrast 3 mm thick sections acquired from the skull base to the T4 level. Sagittal and coronal reformats were then constructed. For radiation dose reduction, the following was used: automated exposure control, adjustment of mA and/or kV according to patient size. COMPARISON: None. FINDINGS: Image quality: Excellent. Bones: No fractures or dislocations. Visualized superior ribs are intact. Multilevel degenerative disc disease and arthropathy results in reversal the normal cervical lordosis as well as grade 1 degenerative anterior spondylolisthesis C3-4 and C4-5 Soft tissues: Prevertebral soft tissues are normal in thickness. No paravertebral hematomas. No apical pneumothoraces. IMPRESSION: Degenerative disc disease and arthropathy without fracture or traumatic malalignment Chest x-ray: Radiologist's Impression: [place] [address] XRay Report Signed Patient: Roseline Ly MR#: [id number] : 1945 Acct:[id number] Age/Sex: 79 / F Date of Service: 04/09/25 Loc: ED Accession Number: [id number] Procedure: XR chest 2V Ordering Provider: Derik Esparza D.O. PROCEDURE: XR CHEST 2V INDICATIONS: fall trauma TECHNIQUE: 2 views of the chest were acquired. COMPARISON: None. FINDINGS: Surgical changes and devices: Implantable left parasternal quarantine inspector and atrial appendage device noted Lungs and pleura: Lungs are clear. No pleural effusions or pneumothorax. Mediastinum: Mediastinal contours are normal. Heart size is normal. Bones and chest wall: No suspicious bony abnormalities. Soft tissues appear unremarkable. IMPRESSION: No acute cardiopulmonary abnormality is seen. Extremity x-ray #1: Radiologist's Impression: [address] [address] XRay Report Signed Patient: Roseline Ly MR#: [id number] : 1945 Acct:[id number] Age/Sex: 79 / F Date of Service: 04/09/25 Loc: ED Accession Number: [id number] Procedure: XR pelvis 1-2V Ordering Provider: Derik Esparza D.O. PROCEDURE: XR PELVIS 1-2V INDICATIONS: fall trauma TECHNIQUE: Single view(s) of the pelvis acquired. COMPARISON: None. FINDINGS: Bones: No fractures or dislocations. No suspicious bony lesions. Soft tissues: Visualized bowel gas pattern is normal. No suspicious soft tissue calcifications. IMPRESSION: No acute bony abnormality. MDM Narrative Medical decision making narrative: All lab work, vital signs, nurse triage note, medication list, previous ER visits, and all imaging studies reviewed. Pelvic x-ray showed note showed no acute abnormality. CT head showed age-appropriate atrophy and chronic ischemic changes without acute hemorrhage or mass effect. Chest x-ray showed no acute cardiopulmonary abnormality. Cervical spine showed degenerative disc disease and arthropathy without fracture or traumatic malalignment. Three jailene. Tetanus updated on today's visit. Staple removal in 3-5 days. Differential diagnosis hemorrhage, fracture, dislocation, pneumothorax, contusion, laceration. Discharge Plan Departure Patient Disposition: Home Clinical Impression: Laceration of scalp Qualifiers: Encounter type: initial encounter Qualified Code(s): S01.01XA - Laceration without foreign body of scalp, initial encounter Instructions: DI for Laceration Repair of the Scalp Activity Restrictions/Additional Instructions: Return with new or worsening symptoms. Follow up PCP and/or walk-in clinic for staple removal in 3-5 days. Prescriptions: No Action montelukast 10 mg tablet 10 mg PO DAILY nebivolol 2.5 mg tablet 2.5 mg PO DAILY sumatriptan succinate 50 mg tablet See Rx Instructions PO .COMPLEX Qty: 20 0RF Rx Instructions: take 1 tab at onset of headache; if no relief may repeat 1 tab after at least 2 hrs; max = 4 tabs/24 hr PO fluticasone propionate [Flonase Allergy Relief] 50 mcg/actuation spray,suspension 2 spray intranasal DAILY Rx Instructions: administer into each nostril Zyrtec 10 mg capsule 10 mg PO DAILY PRN aspirin 325 MG tablet,delayed release (DR/EC) 325 mg PO QDAYP Qty: 0 estradiol 0.5 mg tablet 0.5 mg PO DAILY 90 Days Qty: 90 4RF estradiol 0.01 % (0.1 mg/gram) cream 1 appful vaginal DAILY Qty: 42.5 0RF Rx Instructions: for 14 days Levothyroxine Liothyronine 62-15 mcg capsule 65 mcg PO DAILY Qty: 90 0RF Rx Instructions: Levothyroxine Liothyronine 62-15 mcg Referrals: Addie Lopez MD [Primary Care Provider, Family Practice] Stand Alone Forms: Patient Portal/API
--- NOTE | 2025-04-09 18:00 | DI.RAD.S_ITS ---
PROCEDURE: XR CHEST 2V INDICATIONS: fall trauma TECHNIQUE: 2 views of the chest were acquired. COMPARISON: None. FINDINGS: Surgical changes and devices: Implantable left parasternal gasket maker and atrial appendage device noted Lungs and pleura: Lungs are clear. No pleural effusions or pneumothorax. Mediastinum: Mediastinal contours are normal. Heart size is normal. Bones and chest wall: No suspicious bony abnormalities. Soft tissues appear unremarkable. IMPRESSION: No acute cardiopulmonary abnormality is seen. Approved by: Jose Pulido M.D. on 04/09/2025 at 17:39
[2025-04-09] MEDS: TET,DIPH,PERTUSS(ACELL),VAC/PF 0.5 ML SYRINGE IM (18:57)
[2025-04-09] MEDS: LIDOCAINE 1% W/EPI 10ML 4 ML INJ (19:05)
[2025-04-09 19:13] VITALS: BP 195/93; PULSE 81; RESP 16; O2SAT 97
== END 2025-04-09 19:16 | disposition home or self-care (01) ==
PROVIDERS: Emergency Provider Family Medicine; PCP Family Medicine
DX: S01.01XA Laceration without foreign body of scalp, initial encounter (principal); W18.00XA Striking against unspecified object with subsequent fall, initial encounter; Z23 Encounter for immunization
CPT/HCPCS: 12001; 70450; 71046; 72125; 72170; 90471; 99283; 99284; 90715

== ENCOUNTER → 2025-05-23 08:17 | Outpatient (CLI) | payer MEDICARE, SELFPAY ==
[2025-05-23 08:50] LABS: Add Manual Diff / Slide Review NO; Hematocrit 43.2 % (36-46); Hemoglobin 14.5 g/dL (12.0-16.0); Lymphocytes Absolute Auto 2100 /uL (1100-4500); Mean Corpuscular HGB Conc 33.5 % (30-36); Mean Corpuscular Hemoglobin 28.7 PG (26-34); Mean Corpuscular Volume 85.5 fL (80-100); Platelet Count 241 X10^3/uL (150-400)
[2025-05-23 09:07] LABS: Alanine Aminotransferase 22 IU/L (<35); Albumin 4.4 g/dL (3.5-5.0); Albumin Globulin Ratio 1.4 (1.0-2.8); Alkaline Phosphatase 62 U/L (38-126); Blood Urea Nitrogen 17 mg/dL (7-17); Calcium 9.4 mg/dL (8.4-10.2); Carbon Dioxide 27 mmol/L (22-32); Chloride 99 mmol/L (98-107); Cholesterol 238 mg/dL (140-199); Estimated Glomerular Filt Rate > 60 mL/min (>60); Globulin 3.1 g/dL (1.7-4.1); Glucose 89 mg/dL (70-99); HEMOLYSIS < 15 (0-50); Potassium 4.5 mmol/L (3.4-5.1); Sodium 135 mmol/L (137-145); Total Protein 7.5 g/dL (6.3-8.2); Triglycerides 98 mg/dL (35-150)
[2025-05-23 09:14] LABS: HDL Cholesterol 125 mg/dL (40-60)
== END ==
PROVIDERS: PCP Family Medicine; Referring Provider Family Medicine; Visit Provider Family Medicine
DX: I48.0 Paroxysmal atrial fibrillation (principal); E03.9 Hypothyroidism, unspecified; E78.5 Hyperlipidemia, unspecified
CPT/HCPCS: 36415; 80053; 80061; 85025

== ENCOUNTER → 2025-05-30 08:58 | Outpatient (CLI) | payer MEDICARE, SELFPAY ==
[2025-05-30 11:26] LABS: TSH w/ Reflex to FT4 0.61 uIU/mL (0.47-4.68)
== END ==
PROVIDERS: PCP Family Medicine; Referring Provider Family Medicine; Visit Provider Family Medicine
DX: E03.9 Hypothyroidism, unspecified (principal)
CPT/HCPCS: 36415; 84443